=== PATIENT | female | born 1965 | race Caucasian/White ===

== ENCOUNTER 2021-10-20 09:45 | Outpatient (CLI) | payer OTHER, SELFPAY ==
[2021-10-20 19:41] LABS: Cholesterol 264 mg/dL (0-200); HDL Direct 35 mg/dL; Triglycerides 357 mg/dL (<150)
[2021-10-20 19:53] LABS: LDL Cholesterol Direct 142 mg/dL
[2021-10-20 20:00] LABS: Creatinine Urine 37.3 mg/dL
[2021-10-20 20:31] LABS: Hemoglobin A1C 5.6 % (<5.7)
[2021-10-20 20:37] LABS: MALB Creatinine Ratio < 16.1 mg/g (0-30); Microalbumin Urine Random < 6.0 mg/L (0-16.7)
== END 2021-10-20 09:46 | disposition home or self-care (01) ==
PROVIDERS: PCP Family Medicine; Visit Provider Family Medicine
DX: E11.9 Type 2 diabetes mellitus without complications (principal)
CPT/HCPCS: 36415; 80061; 82043; 83036

== ENCOUNTER 2022-04-27 14:42 | Outpatient (CLI) | payer OTHER, SELFPAY ==
[2022-04-27 19:30] LABS: Hemoglobin A1C 5.4 % (<5.7)
[2022-04-27 19:35] LABS: Alanine Aminotransferase 34 U/L (6-35); Albumin Level 4.8 g/dL (3.5-5.1); Alkaline Phosphatase 82 U/L (38-126); Anion Gap 7 mmol/L (8-16); Aspartate Amino Transferase 47 U/L (14-36); Bilirubin,Total 0.5 mg/dL (0.2-1.3); Blood Urea Nitrogen 14 mg/dL (7-17); Calcium 9.3 mg/dL (8.4-10.2); Carbon Dioxide 31 mmol/L (22-30); Chloride 101 mmol/L (98-107); Estimated Glomerular Filt Rate > 60; Glucose 85 mg/dL (65-110); Potassium 3.5 mmol/L (3.4-5.0); Sodium 139 mmol/L (137-145)
[2022-04-27 20:39] LABS: Creatinine Urine 30.1 mg/dL
[2022-04-27 20:46] LABS: MALB Creatinine Ratio < 19.9 mg/g (0-30); Microalbumin Urine Random < 6.0 mg/L (0-16.7)
== END 2022-04-27 14:43 | disposition home or self-care (01) ==
LOC: ANHBWCLAB 14:44
PROVIDERS: PCP Family Medicine; Visit Provider Family Medicine
DX: E11.9 Type 2 diabetes mellitus without complications (principal)
CPT/HCPCS: 36415; 80053; 82043; 83036

== ENCOUNTER 2022-05-02 11:40 | Outpatient (CLI) | payer OTHER, SELFPAY ==
[2022-05-02 19:32] LABS: Alanine Aminotransferase 31 U/L (6-35); Albumin Level 4.4 g/dL (3.5-5.1); Alkaline Phosphatase 84 U/L (38-126); Aspartate Amino Transferase 45 U/L (14-36); Bilirubin,Total 0.5 mg/dL (0.2-1.3)
[2022-05-02 19:48] LABS: Hepatitis B Surface Antigen Negative (Negative)
[2022-05-02 19:54] LABS: HAV RESULT Negative (Negative); Hepatitis B Core IgM Result Negative (Negative)
[2022-05-02 20:06] LABS: Hepatitis C Virus Antibody Negative (Negative)
== END 2022-05-02 11:41 | disposition home or self-care (01) ==
PROVIDERS: PCP Family Medicine; Visit Provider Family Medicine
DX: R74.01 Elevation of levels of liver transaminase levels (principal)
CPT/HCPCS: 36415; 80074; 80076

== ENCOUNTER → 2022-05-06 10:37 | Outpatient (CLI) | payer OTHER, SELFPAY ==
--- NOTE | ~2022-05-06 | US_ITS ---
US abdomen limited INDICATION: Elevated liver enzymes. PROCEDURE: Realtime right upper abdominal ultrasound. COMPARISON: No prior studies for comparison. FINDINGS: The pancreas is normal without focal mass or pancreatic ductal dilation. Liver echotexture is increased, consistent with fatty infiltration. There is normal directional flow in the portal ve in. There are gallstones. No gallbladder wall thickening or pericholecystic fluid. Common bile duct measu res 5 mm. No sonographic Nielsen's sign. IMPRESSION: 1: Cholelithiasis. 2: Hepatic steatosis. Reviewed, dictated and finalized at location A. E OPERATOR
== END ==
PROVIDERS: PCP Family Medicine; Visit Provider Family Medicine
DX: R74.01 Elevation of levels of liver transaminase levels (principal); K80.20 Calculus of gallbladder without cholecystitis without obstruction; K76.0 Fatty (change of) liver, not elsewhere classified
CPT/HCPCS: 76705

== ENCOUNTER 2022-11-09 08:11 | Outpatient (CLI) | payer OTHER, SELFPAY ==
[2022-11-09 19:28] LABS: Alanine Aminotransferase 35 U/L (6-35); Albumin Level 4.5 g/dL (3.5-5.1); Alkaline Phosphatase 69 U/L (38-126); Anion Gap 5 mmol/L (8-16); Aspartate Amino Transferase 67 U/L (14-36); Bilirubin,Total 0.6 mg/dL (0.2-1.3); Blood Urea Nitrogen 13 mg/dL (7-17); Calcium 9.3 mg/dL (8.4-10.2); Carbon Dioxide 33 mmol/L (22-30); Chloride 104 mmol/L (98-107); Cholesterol 264 mg/dL (0-200); Estimated Glomerular Filt Rate > 60; Glucose 86 mg/dL (65-110); HDL Direct 34 mg/dL; Potassium 4.3 mmol/L (3.4-5.0); Sodium 142 mmol/L (137-145); Triglycerides 242 mg/dL (<150)
[2022-11-09 19:39] LABS: LDL Cholesterol Direct 154 mg/dL
[2022-11-09 19:41] LABS: Hemoglobin A1C 5.2 % (<5.7)
[2022-11-09 19:46] LABS: Vitamin D 25 Hydroxy 59.7 ng/mL
[2022-11-09 20:14] LABS: Creatinine Urine 121.9 mg/dL
[2022-11-09 20:19] LABS: MALB Creatinine Ratio 5.2 mg/g (0-30); Microalbumin Urine Random 6.3 mg/L (0-16.7)
== END 2022-11-09 08:12 | disposition home or self-care (01) ==
LOC: ANHBWCLAB 08:12
PROVIDERS: PCP Nurse Practitioner Adult Health; Visit Provider Nurse Practitioner Adult Health
DX: E11.9 Type 2 diabetes mellitus without complications (principal); E55.9 Vitamin D deficiency, unspecified
CPT/HCPCS: 36415; 80053; 80061; 82043; 82306; 83036

== ENCOUNTER 2022-12-29 08:17 | Outpatient (CLI) | payer OTHER, SELFPAY ==
--- NOTE | ~2022-12-29 | XR_ITS ---
EXAMINATION: XR shoulder LT min 2V INDICATION: Left shoulder pain TECHNIQUE: Four views of the left shoulder are submitted. COMPARISON: None FINDINGS: Normal alignment. No fracture. There is moderate osteoarthritis of the acromioclavicular an d glenohumeral joints. Soft tissues are unremarkable. IMPRESSION: 1. Osteoarthritis without acute osseous abnormality. Reviewed, dictated and finalized at location D.
== END 2022-12-29 08:18 | disposition home or self-care (01) ==
PROVIDERS: PCP Nurse Practitioner Adult Health; Visit Provider Nurse Practitioner Adult Health
DX: M19.012 Primary osteoarthritis, left shoulder (principal)
CPT/HCPCS: 73030

== ENCOUNTER 2023-05-24 10:57 | Outpatient (CLI) | payer OTHER, SELFPAY ==
[2023-05-24 19:36] LABS: Alanine Aminotransferase 36 U/L (6-35); Albumin Level 4.2 g/dL (3.5-5.1); Alkaline Phosphatase 98 U/L (38-126); Anion Gap 8 mmol/L (8-16); Aspartate Amino Transferase 40 U/L (14-36); Bilirubin,Total 0.7 mg/dL (0.2-1.3); Blood Urea Nitrogen 11 mg/dL (7-17); Calcium 9.3 mg/dL (8.4-10.2); Carbon Dioxide 33 mmol/L (22-30); Chloride 101 mmol/L (98-107); Cholesterol 260 mg/dL (0-200); Estimated Glomerular Filt Rate > 60; Glucose 86 mg/dL (65-110); HDL Direct 28 mg/dL; Potassium 4.1 mmol/L (3.4-5.0); Sodium 142 mmol/L (137-145); Triglycerides 190 mg/dL (<150)
[2023-05-24 19:46] LABS: LDL Cholesterol Direct 163 mg/dL
[2023-05-24 20:00] LABS: Creatinine Urine 49.2 mg/dL
[2023-05-24 20:01] LABS: Vitamin D 25 Hydroxy 74.3 ng/mL
[2023-05-24 20:13] LABS: MALB Creatinine Ratio < 12.2 mg/g (0-30); Microalbumin Urine Random < 6.0 mg/L (0-16.7)
[2023-05-24 20:55] LABS: Hemoglobin A1C 5.3 % (<5.7)
== END 2023-05-24 10:58 | disposition home or self-care (01) ==
PROVIDERS: PCP Nurse Practitioner Adult Health; Visit Provider Nurse Practitioner Adult Health
DX: E11.9 Type 2 diabetes mellitus without complications (principal); E55.9 Vitamin D deficiency, unspecified
CPT/HCPCS: 36415; 80053; 80061; 82043; 82306; 83036

== ENCOUNTER 2023-11-02 08:28 | Outpatient (CLI) | payer OTHER, SELFPAY ==
[2023-11-02 19:50] LABS: Appearance Urine Clear (Clear); Bilirubin Urine Negative (Negative); Blood Urine Negative (Negative); Color Urine Yellow (Yellow); Glucose Urine UA Negative (Negative); Ketones Urine Negative (Negative); Leukocyte Esterase Ur Negative LEU/UL (Negative); Nitrate Urine Negative (Negative); Protein Urine Negative (Negative); Specific Grav Ur 1.019 (1.001-1.035); Urobilinogen Urine 0.2 mg/dL (<2.0); pH Urine 5.5 (5.0-9.0)
[2023-11-02 19:54] LABS: Alanine Aminotransferase 21 U/L (6-35); Albumin Level 4.5 g/dL (3.5-5.1); Alkaline Phosphatase 84 U/L (38-126); Anion Gap 7 mmol/L (4-12); Aspartate Amino Transferase 62 U/L (14-36); Bilirubin,Total 0.6 mg/dL (0.2-1.3); Blood Urea Nitrogen 16 mg/dL (7-17); Calcium 9.2 mg/dL (8.4-10.2); Carbon Dioxide 30 mmol/L (22-30); Chloride 106 mmol/L (98-107); Cholesterol 280 mg/dL (0-200); Estimated Glomerular Filt Rate > 60; Glucose 87 mg/dL (65-110); HDL Direct 34 mg/dL; Potassium 4.3 mmol/L (3.4-5.0); Sodium 143 mmol/L (137-145); Triglycerides 284 mg/dL (<150)
[2023-11-02 19:58] LABS: Add Urine Microscopic? NO
[2023-11-02 20:02] LABS: Hemoglobin A1C 5.1 % (<5.7)
[2023-11-02 20:05] LABS: LDL Cholesterol Direct 156 mg/dL
[2023-11-02 20:16] LABS: Creatinine Urine 131.6 mg/dL
[2023-11-02 20:16] LABS: Vitamin D 25 Hydroxy 62.1 ng/mL
[2023-11-02 20:18] LABS: MALB Creatinine Ratio 5.2 mg/g (0-30); Microalbumin Urine Random 6.8 mg/L (0-16.7)
== END 2023-11-02 08:29 | disposition home or self-care (01) ==
PROVIDERS: PCP Nurse Practitioner Adult Health; Visit Provider Nurse Practitioner Adult Health
DX: E11.9 Type 2 diabetes mellitus without complications (principal); R39.9 Unspecified symptoms and signs involving the genitourinary system; E55.9 Vitamin D deficiency, unspecified
CPT/HCPCS: 36415; 80053; 80061; 81003; 82043; 82306; 82565; 83036; 87086; 87088

== ENCOUNTER 2023-11-11 23:29 | Emergency (ER) | payer OTHER, SELFPAY ==
[2023-11-11 23:31] VITALS: BP 132/72; PULSE 83; RESP 17; TEMP 36.4; O2SAT 100
[2023-11-11 23:53] VITALS: BP 121/71; PULSE 91; RESP 13; TEMP 36.5; O2SAT 93
--- NOTE | 2023-11-11 23:57 | PC.NURSE ---
pt has a hx of shingles and chicken pox.
--- NOTE | 2023-11-12 00:28 | ED.SKABFB ---
HPI - Skin/Abscess/Foreign Bdy General Chief complaint: Skin/Abscess/Foreign Body Stated complaint: Rash Time Seen by Provider: 11/12/23 00:04 Source: patient Mode of arrival: ambulatory Limitations: no limitations History of Present Illness HPI narrative: Patient is a 57-year-old female who presents the ED with report of rash. Patient reports she noticed a rash on Monday with a few small red raised lesions on her arms. She has since developed lesions throughout her back, chest, abdomen, thighs, more throughout her arms. She states the rash is very itchy. Some of the lesions have popped . patient denies any lesions of her mouth, swelling of lips / throat/ tongue. Denies fevers. Denies any new soaps, lotions, detergents. She has been dealing with a rash of her hands over the last several months and is scheduled to see Dermatology for this at the end of November. she has been using a steroid cream and Silvana without much relief. Related Data Home Medications Medication Instructions Recorded Confirmed cholecalciferol (vitamin D3) 125 125 mcg PO DAILY 10/20/21 11/02/23 mcg (5,000 unit) capsule Allergies Allergy/AdvReac Type Severity Reaction Status Date / Time Opioids - Morphine Analogues Allergy Severe Itching Verified 11/11/23 23:54 Penicillins Allergy Hives Verified 11/11/23 23:54 Review of Systems Review of Systems: CONSTITUTIONAL: Denies fever, chills, or sweats. ENT: See HPI SKIN: See HPI All systems reviewed & are unremarkable except as noted in HPI and below PMFSH Family History Family History Mother Cancer Heart disease Depression Hypertension Sibling Alcohol abuse Diabetes mellitus Hypertension Depression Social History Social History Smoking packs per day: 1 Smoking cigarettes per day: 20.0 Smoking status: Current every day smoker Alcohol intake: never Substance use: never Substance use type: does not use Lack of Transportation: No Lack of Food: Never True Current Housing: I Have Housing Concerned About Future Housing: No Difficulty Paying Gas/Electric Bills: No Difficulty Paying for Meds: No Currently Unemployed: No Education: High School Diploma/GED Difficulty w/ Childcare or Family Care: No Living arrangements: with family Additional occupation/education comments: Housewife Gender identity (if verbalized by the patient): Female Sexual Orientation (if Verbalized by the Patient): Straight or Heterosexual Agree to blood products: Yes Exam Narrative: GENERAL: Well appearing, well-nourished, non-toxic, in no acute distress. HEAD: Normocephalic, atraumatic. ENT: No lesions of face. MMs moist. RESPIRATORY: Airway patent, respirations nonlabored. CARDIOVASCULAR: Regular rate and rhythm MUSCULOSKELETAL: Moves all extremities. No gross deformities. SKIN: Warm, dry, normal color. NEURO: A&O X3. Speech clear. Scattered raised erythematous lesions to chest, axillary regions, back, abdomen, thighs, arms. Some lesions appear to have pustular head forming. No actively draining lesions. No large blisters/vesicles. No necrosis/sloughing of skin. PSYCHIATRIC: Appropriate mood and affect. Normal interaction. Course Vital Signs Vital signs: Vital Signs Temperature 97.5 F L 11/11/23 23:31 Pulse Rate 83 11/11/23 23:31 Respiratory Rate 17 11/11/23 23:31 Blood Pressure 132/72 11/11/23 23:31 Pulse Oximetry 100 11/11/23 23:31 Oxygen Delivery Room Air 11/11/23 23:31 Temperature 97.7 F 11/11/23 23:53 Pulse Rate 91 11/11/23 23:53 Respiratory Rate 13 11/11/23 23:53 Blood Pressure 121/71 11/11/23 23:53 Pulse Oximetry 93 11/11/23 23:53 Oxygen Delivery Room Air 11/11/23 23:31 MDM - Skin/Abscess/Foreign Bdy MDM Narrative Medical decision making narrative: Unclear et
[2023-11-12] MEDS: diphenhydrAMINE HCl CAP 25 MG CAPSULE 50 MG PO (00:57)
[2023-11-12] MEDS: DOXYCYCLINE HYCLATE 100 MG TABLET PO (00:58)
[2023-11-12] MEDS: methylPREDNISolone SOD SUCC 125 MG VIAL IM (01:01)
== END 2023-11-12 01:04 | disposition home or self-care (01) ==
PROVIDERS: Emergency Provider Physician Assistant; PCP Nurse Practitioner Adult Health
DX: L08.0 Pyoderma (principal); F17.210 Nicotine dependence, cigarettes, uncomplicated
CPT/HCPCS: 96372; 99283; A9270; J2919

== ENCOUNTER 2023-12-06 14:38 | Outpatient (CLI) | payer OTHER, SELFPAY ==
--- NOTE | ~2023-12-06 | XR_ITS ---
3 VIEWS LUMBAR SPINE Ordering provider: Flor Bailey APRN History: . rt sided lower back pain radiating to rt hip x 2 days . Comparison: None. FINDINGS: VERTEBRAL BODIES: No visible fracture or subluxation. DISK SPACES: Narrowing of all disc spaces. Facet joint disease at the level of L4-L5 and L5-S1. SOFT TISSUES: Vascular calcifications. IMPRESSION: No acute osseous abnormality lumbar spine. Reviewed, dictated and finalized at location A.
--- NOTE | ~2023-12-06 | XR_ITS ---
XR hip RT min 2V 12/06/2023 14:49 Indication: Right hip pain for 2 days Procedure: 2 views right hip Comparison: No prior studies for comparison. Findings: There is mild osteoarthritis the right hip. No fracture or traumatic malalignment. No soft tissue abnormality. No foreign bodies. Impression: 1: Mild osteoarthritis of the right hip. Reviewed, dictated and finalized at location B. Impression: 1: Mild osteoarthritis of the right hip.
== END 2023-12-06 14:39 | disposition home or self-care (01) ==
LOC: ANHBWCIMG 14:39
PROVIDERS: PCP Nurse Practitioner Adult Health; Visit Provider Nurse Practitioner Adult Health
DX: M54.30 Sciatica, unspecified side (principal); M16.11 Unilateral primary osteoarthritis, right hip
CPT/HCPCS: 72100; 73502

== ENCOUNTER 2024-01-02 15:45 | Outpatient (CLI) | payer OTHER, SELFPAY ==
--- NOTE | ~2024-01-02 | XR_ITS ---
EXAMINATION: XR ankle LT 2V, XR foot LT min 3V DATE: 01/02/2024 16:01 INDICATION: Left foot injury TECHNIQUE: 1. Anteroposterior and lateral view of the left ankle were obtained. 2. Dorsoplantar, two oblique and lateral views of the left foot were obtained. COMPARISON: None. FINDINGS: Alignment of the left foot and ankle is normal. No fracture. Moderate-sized Achilles and plantar calc aneal spurs. Typical pattern of mild polyarticular osteoarthritis at multiple joints in the mid and f orefoot. No ankle joint effusion. The soft tissues are unremarkable. IMPRESSION: 1. Mild degenerative skeletal changes at the left foot. No acute osseous abnormality. Reviewed, dictated and finalized at location A. IMPRESSION: 1. Mild degenerative skeletal changes at the left foot. No acute osseous abnorm ality.
== END 2024-01-02 15:46 | disposition home or self-care (01) ==
PROVIDERS: PCP Nurse Practitioner Adult Health; Visit Provider Nurse Practitioner Adult Health
DX: S99.922A Unspecified injury of left foot, initial encounter (principal)
CPT/HCPCS: 73600; 73630

== ENCOUNTER 2024-04-30 10:53 | Outpatient (CLI) | payer OTHER, SELFPAY ==
[2024-04-30 21:07] LABS: Vitamin D 25 Hydroxy 66.4 ng/mL
[2024-04-30 22:03] LABS: Hemoglobin A1C 5.2 % (<5.7)
[2024-04-30 22:30] LABS: Alanine Aminotransferase 24 U/L (6-35); Albumin Level 4.9 g/dL (3.5-5.1); Alkaline Phosphatase 97 U/L (38-126); Anion Gap 10 mmol/L (4-12); Aspartate Amino Transferase 31 U/L (14-36); Bilirubin,Total 0.7 mg/dL (0.2-1.3); Blood Urea Nitrogen 14 mg/dL (7-17); Calcium 10.3 mg/dL (8.4-10.2); Carbon Dioxide 25 mmol/L (22-30); Chloride 113 mmol/L (98-107); Cholesterol 286 mg/dL (0-200); Estimated Glomerular Filt Rate > 60; Glucose 95 mg/dL (65-110); HDL Direct 41 mg/dL; Potassium 4.6 mmol/L (3.4-5.0); Sodium 148 mmol/L (137-145); Triglycerides 345 mg/dL (<150)
[2024-04-30 22:41] LABS: LDL Cholesterol Direct 152 mg/dL
[2024-04-30 23:10] LABS: Creatinine Urine 61.2 mg/dL
[2024-04-30 23:21] LABS: Microalbumin Urine Random < 6.0 mg/L (0-16.7)
[2024-04-30 23:22] LABS: MALB Creatinine Ratio < 9.8 mg/g (0-30)
== END 2024-04-30 10:54 | disposition home or self-care (01) ==
LOC: ANHBWCLAB 10:56
PROVIDERS: PCP Nurse Practitioner Adult Health; Visit Provider Nurse Practitioner Adult Health
DX: E11.9 Type 2 diabetes mellitus without complications (principal); E55.9 Vitamin D deficiency, unspecified; Z51.81 Encounter for therapeutic drug level monitoring
CPT/HCPCS: 36415; 80053; 80061; 82043; 82306; 82565; 82607; 83036

== ENCOUNTER 2024-07-31 12:11 | Emergency (ER) | payer OTHER, SELFPAY ==
--- NOTE | ~2024-07-31 | CT_ITS ---
CT abd pelvis lumbar wo con Ordering provider: Cortney Blancas PA-C History: 58 years Female with . include L spine, lbp, lower abd pain . Comparison: None. Technique: CT abdomen and pelvis without IV and without oral contrast. Automated exposure control and iterative reconstruction technique were employed. The dose-length product was 414.95 mGy-cm. Findings: VISUALIZED LOWER CHEST: Dependent atelectatic changes. UPPER ABDOMINAL ORGANS: Liver: Normal. Hepatomegaly. Gallbladder: Normal. Spleen: Normal. 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 Stomach/duodenum: Normal. Pancreas: Normal. Adrenals: Normal. Kidneys: Normal. PELVIC ORGANS: The bladder is normal. Fat-containing structure is seen above the urinary bladder which measures 6.5 x 5.3 cm. BOWEL AND MESENTERY: Colon: No evidence of diverticulitis. Fecal material is loaded in the right side of the colon Appendi x is not demonstrated. Small Bowel: Normal. No obstruction. Peritoneum/mesentery: No free air or free fluid. No mesenteric lymphadenopathy. RETROPERITONEUM: Mild atheromatous disease of the abdominal aorta. Focal area of dilatation the aort a is seen measuring 2.4 cm. No retroperitoneal lymphadenopathy. MUSCULOSKELETAL: Superficial soft tissues: Multiple defects in the area of the pelvis with fat content hernias. Rs,The superficial soft tissues are normal. Bones: Age appropriate degenerative changes of the spine. . Symphysitis. IMPRESSION: 1. Hepatomegaly. 2. Fat-containing structure is seen above the bladder with calcification which may be fat necrosis a nusrat. Follow-up advised. 3. Multiple defects in the anterior abdominal wall with fat content seen in the area of the pelvis. CT abd pelvis lumbar wo con Ordering provider: Cortney Blancas PA-C History: 58 years Female with . include L spine, lbp, lower abd pain . Comparison: None. Technique: CT lumbar spine without contrast. Automated exposure control and iterative reconstruction technique were employed. The dose-length product was 414.95 mGy-cm. FINDINGS: VERTEBRAE: Normal height and alignment. No subluxation or visible acute fracture. Degenerative change s of the spine. DISC SPACES: Narrowing of the disc L1-L2 and L2-L3. Left Facet joint disease at the level of L4-L5 an d L5-S1. Possible fracture of the transverse process persists of T12 on the right side or rudimentary rib. T12-L1: No stenosis. L1-L2: No stenosis. Mild diffuse disc bulge. L2-L3: No stenosis. Diffuse disc bulge with osteophytes with bilateral narrowing of the foramina mor e on the left side associated with nerve root compression. L3-L4: No stenosis. Diffuse disc bulge with bilateral narrowing of the foramina and nerve root compre ssion. L4-L5: No stenosis. Mild diffuse disc bulge. L5-S1: No stenosis. Diffuse disc bulge. PARASPINOUS SOFT TISSUES: Mild atheromatous disease of the abdominal aorta. IMPRESSION: Multilevel degenerative disc bulges with disc bulges and intervertebral foraminal narrowing. No acute osseous abnormality. Reviewed, dictated and finalized at location A. IMPRESSION: 1. Hepatomegaly. 2. Fat-containing structure is seen above the bladder with calcification which may be fat necrosis area. Follow-up advised. 3. Multiple defects in the anterior abdominal wall with fat content seen in th e area of the pelvis. CT abd pelvis lumbar wo con Ordering provider: Cortney Blancas PA-C History: 58 years Female with . include L spine, lbp, lower abd pain . Comparison: None. Technique: CT lumbar spine without contrast. Automated exposure control and it erative reconstruction technique were employed. The dose-length product was 414 .95 mGy-cm. FINDINGS: VERTEBRAE: Normal height and alignment. No subluxation or visible acute fractur e. Degenerative changes of the spine. DISC SPACES: Narrowing of the disc L1-L2 and L2-L3. Left Facet joint disease at the level of L4-L5 and L5-S1. Possible fracture of the transverse process persists of T12 on the right side o r rudimentary rib. T12-L1: No stenosis. L1-L2: No stenosis. Mild diffuse disc bulge. L2-L3: No stenosis. Diffuse disc bulge with osteophytes with bilateral narrowi ng of the foramina more on the left side associated with nerve root compression . L3-L4: No stenosis. Diffuse disc bulge with bilateral narrowing of the foramina and nerve root compression. L4-L5: No stenosis. Mild diffuse disc bulge. L5-S1: No stenosis. Diffuse disc bulge. PARASPINOUS SOFT TISSUES: Mild atheromatous disease of the abdominal aorta. IMPRESSION: Multilevel degenerative disc bulges with disc bulges and intervertebral foramin al narrowing. No acute osseous abnormality.
[2024-07-31 12:12] VITALS: BP 127/72; PULSE 91; RESP 16; TEMP 36.4; O2SAT 99
--- OUTSIDE RECORDS SUMMARY | 2024-07-31 13:41 | XMS_ITS | Clinical Summary ---
Author Organization [facility] [address] [place] Address [address] [place] [id number] Care Team Providers Care Tax Services Professional Name Role Phone Juancarlos Mendez MD Primary Care Provider [phone] Allergies Active Allergy Reactions Criticality Noted Date Comments Morphine Itching,Other (See comments) Reaction: Itching, , Reaction: Unknown, , Medications cholecalciferol (VITAMIN D-3) 5,000 unit capsule Take 5,000 Units by mouth daily Active FreeStyle Palak 14 Day Sensor kit TEST SUGAR SIX TIMES DAILY 0 Active metoprolol tartrate (LOPRESSOR) 50 mg immediate release tablet Take 1 tablet by mouth twice daily 180 tablet 3 1 Active omeprazole (PriLOSEC) 40 mg capsule Take 1 capsule by mouth once daily 90 capsule 3 1 Active Ozempic 0.25 mg or 0.5 mg(2 mg/1.5 mL) pen injector injection INJECT 0.5MG UNDER THE SKIN EVERY 7 DAYS 6 mL 3 1 Active chlorhexidine (HIBICLENS) 4 % external liquidIndications :Skin Disinfection Apply topically daily as needed for wound care Cleanse skin with solution twice a week 946 mL 1 1 Active meloxicam (MOBIC) 15 mg tablet Take 1 tablet (15 mg total) by mouth daily as needed for pain 90 tablet 1 2 Active losartan (COZAAR) 50 mg tablet Take 1 tablet (50 mg total) by mouth daily 90 tablet 3 2 Active Active Problems Problem Noted Date Diagnosed Date Perineal pain 03/30/2021 Assessment & Plan (03/30/2021 11:30 AM GROUP CHIEF OPERATOR): It appears that the either small abscess, infected hair follicle or cyst has resolved with just the oral antibiotics. There is no further sign of anything to lanced or drain. The patient will just keep an eye on this. I am going to send her in Hibiclens that she can use on a weekly basis to see if this may help these further lesions from returning. VIOLET (obstructive sleep apnea) 08/20/2020 Type 2 diabetes mellitus with hyperlipidemia 04/2019 Chronic GERD 04/10/2017 Mixed hyperlipidemia 04/10/2017 Essential hypertension 04/10/2017 Tobacco abuse 04/10/2017 Vitamin D deficiency 04/10/2017 Hypertension 02/17/2011 Hyperlipidemia 02/17/2011 Arthritis 02/17/2011 Sleep apnea 01/10/2011 Overview (08/19/2016): Sleep apnea Resolved Problems Problem Noted Date Diagnosed Date Resolved Date Leg mass, left 02/25/2020 06/09/2020 Assessment & Plan (04/07/2020 9:05 AM GROUP CHIEF OPERATOR): Pathology reviewed with the patient as lipoma. No further restrictions from surgical standpoint. Patient can call back with any further questions or concerns. Assessment & Plan (02/25/2020 11:48 AM CDT): Given that this subcutaneous lesion in the upper left thigh is increasing in size we will set her up for excision. This likely will end up representing a lipoma. Postoperative restrictions will be given. Pre-admission testing will be sent in. Dermoid cyst of leg, right 02/25/2020 0 06/09/2020 Assessment & Plan (02/25/2020 11:51 AM CDT): The right inner thigh lesion has near completely resolved as there is no residual palpable lesion. This likely represented a epidermoid cyst. If increases in size again we could set her up for excision. The left inner groin lesion appears to just be an ingrown hair follicle. Perhaps when she 1st noticed it it was infected causing it to be somewhat red but this also has since resolved. No treatment needed to these inner groin lesions unless they begin to increase in size. Mikala-rectal abscess 06/25/2019 06/09/19 21 Assessment & Plan (07/02/2019 10:39 AM GROUP CHIEF OPERATOR): Continue packing changes. Will likely need to be done for another 3-4 days. She will call us back for any further questions or concerns. Assessment & Plan (06/25/2019 10:33 AM GROUP CHIEF OPERATOR): I will plan to open the abscess up in the office today. We have discussed the need then for daily packing changes so that it may have a chance to heal from the bottom up. I have also discussed my concerns about a possible fistula given its two weak persistence. Once the area has been packed and allowed to heal will see if it quickly returns. If this is the case will set her up for an exam under anesthesia to see if there is in fact a fistula. Epigastric pain 10/18/2017 07/19/2018 Overview (10/18/2017): Added automatically from request for surgery [id number] Pure hypercholesterolemia 09/28/2013 Overview (08/19/2016): PURE HYPERCHOLESTEROLEM Benign hypertension 09/28/2013 04/10/20 17 Overview (08/19/2016): BENIGN HYPERTENSION Carpal tunnel syndrome 04/27/201104/10 Overview (08/17/2016): Bilateral carpal tunnel syndrome Headache 04/27/2011 04/10/2017 Overview (08/17/2016): Headache Cephalalgia 02/17/2011 10/13/2017 Immunizations Immunization Administration Dates Next Due Influenza, Unspecified 06/10/2021(Deferr ed: Patient Refused),12/14/2020(Deferred: Patient Refused),12/10/2020(Deferred: Patient Refused),06/09/2020(Deferred: Patient Refused),02/13/2020(Deferred: Patient Refused),11/25/2019(Deferred: Patient Refused),07/25/2019(Deferred: Patient Refused),06/19/2019(Deferred: Patient Refused),03/06/2019(Deferred: Patient ill today),01/24/2019(Deferred: Patient Refused),05/30/2018(Deferred: Patient Refused),02/12/2018(Deferred: Patient Refused),04/10/2017(Deferred: Patient Refused) Surgical History Surgery Date Site/Laterality Comments BLADDER SURGERY 05/15/2005 - 05/14/2006 Bladder Sling OTHER SURGICAL HISTORY Sleep Apnea: Cpap Machine TUBAL LIGATION Bilateral tubal ligation TOTAL ABDOMINAL HYSTERECTOMY W/ BILATERAL SALPINGOOPHORECTOMY 05/15/2005 - 05/14/2006 Hysterectomy, total abdominal, BSO TONSILLECTOMY Tonsillectomy MASS EXCISION 03/30/2020 Left Medical History Medical History Date Comments Sleep apnea Sleep Apnea Hx Other Medical chronic headach es Hx Other Medical Carpal tunnel s yndrome Hx Other Medical osteopenia Spinal stenosis Spinal Stenosis Osteoarthritis Osteoarthritis Hypertension Hypertension Hyperlipidemia Hyperlipidemia Hx Other Medical julio cesar ct release Diabetes mellitus (HCC) GERD (gastroesophageal reflux disease) Type 2 diabetes mellitus (HCC) Family History Medical History Relation Name Comments Melanoma Brother 5 Cancer -melanom a; Hypertension Brother 6 Hypertension; Diabetes Brother 7 Diabetes mellit us; Heart disease Brother 8 Heart disease; Melanoma Brother 9 Cancer -melanom a; Cancer Father Cancer; Melanoma Father Cancer -melanom a; Heart disease Mother Heart disease; Hypertension Mother Hypertension; Diabetes Other 1 Family history of Diabetes mellitus; Heart disease Other 2 Family history of Heart disease; Hypertension Other 3 Family history of Hypertension; Melanoma Other 4 Family history of Melanoma; Cancer Other 5 Family history of Cancer; Relation Name Status Comments Brother 1 Alive Brother 2 Alive Brother 3 Alive Brother 4 Alive Brother 5 Brother 6 Brother 7 Brother 8 Brother 9 Father Mother Other 1 Other 2 Other 3 Other 4 Other 5 Social History Tobacco Use Types Packs/Day Years Used Date Smoking Tobacco: Heavy Smoker Cigarettes Smokeless Tobacco: Never Tobacco Cessation:Ready to Q uit: Yes; Counseling Given: Yes Comments:Smoking History Packs/day: 1 Packs Alcohol Use Standard Drinks/Week Comments Yes 0 (1 standard drink = 0.6 oz pur e alcohol) PHQ-2 Answer Date Recorded PHQ-2 Total Score (If total score is 3 or more points, staff should administer the PHQ-9) 0 06/10/2021 Comments Unknown Sex and Gender Information Value Date Recorded Sex Assigned at Not on file Legal Sex Female 8:05 PM GROUP CHIEF OPERATOR Gender Identity Not on file Sexual Orientation Not on file Obstetrics History Last Filed Vital Signs Vital Sign Reading Time Taken Comments Blood Pressure 124/68 12/24/2021 6:20 PM CDT Pulse 86 12/24/2021 6:20 PM CDT Temperature 36.2 C (97.1 F) 12/24/2021 6:20 PM CDT Respiratory Rate 17 12/24/2021 6:20 PM CDT Oxygen Saturation 96% 12/24/2021 6:20 PM CDT Inhaled Oxygen Concentration - - Weight 84.6 kg (186 lb 6.4 oz) 12/24/2021 6:20 P M CDT Height 170.2 cm (5' 7 ) 12/24/2021 6:20 PM CDT Body Mass Index 29.19 12/24/2021 6:20 PM CDT Plan of Treatment Health Maintenance Due Date Last Done Comments DTaP/Tdap/Td Vaccine (1 - Tdap) 11/16/1975 Hepatitis B Screening 1982 Pneumococcal vaccine <65 (1 of 2 - PCV) 11/16/1983 Zoster Vaccine (1 of 2) 2014 Osteoporosis Screening-Bone Density Scan 11/24/2017 11/25/2015 Dilated Eye Exam 06/27/2020 06/27/2019, , 08/09/2018, Additional history exists Foot Exam 11/24/2020 11/25/2019, 01/13, 05/30/2018, Additional history exists Hemoglobin A1C 12/01/2021 06/03/2021, 11/13, 06/05/2020, Additional history exists Albumin Creatinine Ratio, Urine 06/03/2022 , 06/05/2020 Lipid Panel 06/03/2022 06/03/2021, 11/13, 06/05/2020, Additional history exists eGFR 06/03/2022 06/03/2021, 11/13, 06/05/2020, Additional history exists Depression Screening 06/10/2022 06/10/2021, 12/10/2020, 06/09/2020, Additional history exists Regular Well Visit/Exam 18-64 06/10/2022, 06/09/2020, 01/24/2019, Additional history exists Breast Cancer Screening-Mammogram 02/08/2023 02/08/2022, 10/25/2016, 10/09/2015, Additional history exists Influenza Vaccine (#1) 2024 Colon Cancer Screening-Colonoscopy 03/07/2026 03/07/2016, 03/07/2016, 01/24/2011 Colon Cancer Screening-CT Colonography Discontinued 03/07/2016, 03/07/2016, 01/24/2011 Colon Cancer Screening-DNA Stool Discontinued 03/07/2016, 03/07/2016, 01/24/2011 Colon Cancer Screening-FIT Discontinued 03/07, 03/07/2016, 01/24/2011 Colon Cancer Screening-Sigmoidoscopy Discontinued 03/07/2016, 03/07/2016, 01/24/2011 Hepatitis C Screening Completed 03/27/2017 Procedures Procedure Name Priority Date/Time Associated Diagnosis Comments DIAGNOSTIC MAMMOGRAM BILATERAL W DEAN Schedule Routine, Read Routine (OP Routine) 02/08/2022 1:01 PM CDT Mastodynia Encounter for other screening for malignant neoplasm of breast ALBUMIN CREATININE RATIO, URINE Routine 06/03/2021 2:32 PM GROUP CHIEF OPERATOR Annual physical exam Essential hypertension EGFR Routine 06/03/2021 11:45 AM GROUP CHIEF OPERATOR Annual physical exam Essential hypertension HEMOGLOBIN A1C Routine 06/03/2021 11:45 AM GROUP CHIEF OPERATOR Annual physical exam Type 2 diabetes mellitus with hyperlipidemia (HCC) LIPID PANEL Routine 06/03/2021 11:45 AM GROUP CHIEF OPERATOR Annual physical exam Mixed hyperlipidemia HM DIABETES EYE EXAM Routine 06/27/2019 HEPATITIS C AB REFLEX RNA QUANT PCR Routine 03/27/2017 2:34 PM GROUP CHIEF OPERATOR COLONOSCOPY 03/07/2016 12:00 AM CDT DEXA AXIAL SKELETON BONE DENSITY 1 OR MORE SITES Schedule Routine, Read Routine (OP Routine) 11/25/2015 from Last 3 Months or Most Recently Relevant to Health Maintenance Results * Diagnostic Mammogram Bilateral W Dean (02/08/2022 1:01 PM CDT) Anatomical Region Laterality Modality Breast Bilateral Mammography 02/08/2022 1:19 PM CDT Impressions 02/08/2022 1:19 PM CDT No evidence of malignancy in either breast. OVERALL FINAL ASSESSMENT: BI-RADS Category 2: Benign. RECOMMENDATION: Annual screening mammography is recommended. Electronically signed by: Alexandra Mcdonald M.D. Narrative 02/08/2022 1:19 PM CDT EXAMINATION: BILATERAL DIGITAL DIAGNOSTIC MAMMOGRAM INCLUDING CAD AND BILATERAL DIGITAL BREAST TOMOSYNTHESIS HISTORY: Patient has right nipple pain for 48 hours a month ago. Today she does not have any pain. Bilateral oil cysts. Benign left breast biopsies. COMPARISON: 10/25/2016 to 09/16/2013 TECHNIQUE: Full field digital mammographic views of BOTH breasts were performed, including computer aided detection (CAD) and BILATERAL digital breast tomosynthesis (DBT). BREAST PARENCHYMAL COMPOSITION: The breasts are heterogenously dense, which may obscure small masses. MAMMOGRAM FINDINGS: There is no new suspicious abnormality within EITHER breast; the appearance of BOTH breasts is stable compared to prior exams. Bilateral stable calcified oil cysts are seen. Findings were discussed with the patient after completion of the exam and suggested if she has pain, schedule for ultrasound/follow-up with her physician. us Juancarlos Mendez MD IMG MAMMO PROCEDURES Bridget l Result * Albumin Creatinine Ratio, Urine (06/03/2021 2:32 PM GROUP CHIEF OPERATOR) Albumin Ur <12.0 mg/L [facility] ([facility]) Comment: Interpretive Data No reference range established. Current interpretive data was last revised 2018. Testing performed by: [facility], [address] [place] [address], [place]., [address] Creatinine Ur 119.6 mg/dL [facility] ([facility]) Comment: Interpretive Data No reference range established. Current interpretive data was last revised 2018. Testing performed by: [facility], [address] [place] [address]., [id number] Albumin Creatinine Ratio, Ur <10 1 - 29 mg/g [facility] ([place]) Comment:Testing performed by : [facility], [address] [place] [address]., [id number] Urine 06/03/2021 2:32 PM GROUP CHIEF OPERATOR 06/03/2021 8:46 PM GROUP CHIEF OPERATOR Narrative [facility] ([place]) - 06/03/2021 9:29 PM GROUP CHIEF OPERATOR Fasting- pt will be getting done 1-2 weeks before appt us Aleksey Meléndez MD LAB URINE ORDERABLES Final Res ult [facility] ([place]) 1 [facility] Department [place] [address] * eGFR (06/03/2021 11:45 AM GROUP CHIEF OPERATOR) eGFR 109 mL/min/1. 73 m2 [facility] ([place]) Comment: Interpretive Data Reference Interval Normal >/= 90 mL/min/1.73m2 Mildly decreased* 60 - 89 mL/min/1.73m2 Mildly to moderately decreased 45 - 59 mL/min/1.73m2 Moderately to severely decreased 30 - 44 mL/min/1.73m2 Severely decreased 15 - 29 mL/min/1.73m2 Kidney Failure < 15 mL/min/1.73m2 *Relative to young adult level Estimated glomerular filtration rate is determined by the 2020 CKD-EPI equation recommended by the National Kidney Foundation (A Unifying Approach to GFR Estimation: Recommendations of the NKF-ASK Task Force on Reassessing the Inclusion of Race in Diagnosing Kidney Disease, JASN 2020). The CKD-EPI equation should not be used for patients with unstable renal function and has not been validated in children and those over 70. Current interpretive data was last reviewed 2021. Blood 06/03/2021 11:4 5 AM GROUP CHIEF OPERATOR 06/03/2021 1:00 PM GROUP CHIEF OPERATOR us Aleksey Meléndez MD LAB BLOOD ORDERABLES Final Res ult Performing Organization Address City/[facility]/ZIP Co de Phone Number [facility] ([facility]) 1 [facility] [place] [address] * Hemoglobin A1c (06/03/2021 11:45 AM GROUP CHIEF OPERATOR) Hgb A1C 5.5 4.0 - 5.6 % [facility] ([facility]) Estimated Average Glucose 111 mg/dL [facility] ([facility]) Comment: The ADA recommends reporting an estimated Average Glucose (eAG) with all Hemoglobin A1c results using the equation derived from a study of 507 normal and diabetic adults. Minority populations were underrepresented and children were not included. (Diabetes Care 31:7894-1788, 2008). The eAG is not equivalent to a fasting glucose. Blood 06/03/2021 11:4 5 AM GROUP CHIEF OPERATOR 06/03/2021 1:00 PM GROUP CHIEF OPERATOR Narrative [facility] ([place]) - 06/03/2021 1:58 PM GROUP CHIEF OPERATOR Fasting- pt will be getting done 1-2 weeks before appt Aleksey Meléndez MD LAB BLOOD ORDERABLES Final Res ult Performing Organization Address [facility] Co de Phone Number [facility] ([facility]) 1 [facility] [place] [address] * (ABNORMAL) Lipid panel (06/03/2021 11:45 AM GROUP CHIEF OPERATOR) Cholesterol 218(H) 30 - 199 mg/dL [facility] ([facility]) Comment: Interpretive Data Ages < or = 19 years Acceptable: <170 mg/dL Borderline high: 170-199 mg/dL High: >or= 200 mg/dL Ages > or = 20 years Desirable: <200 mg/dL Borderline high: 200-239 mg/dL High: >or= 240 mg/dL Literature References: 1. Expert Panel on Integrated Guidelines for Cardiovascular Health and Risk Reduction in Children and Adolescents. Pediatrics 2011;128:S213 2. NCEP Expert Panel. Circulation 2004;110:227 Current Interpretive Data was last revised on 2018. Triglycerides 267(H) <=149 mg/dL [facility] ([facility]) Comment: Interpretive Data Ages < or = 9 years Acceptable: <75 mg/dL Borderline high: 75-99 mg/dL High: >or= 100 mg/dL Ages 10 to 20 years Acceptable: <90 mg/dL Borderline high: 90-129 mg/dL High: >or= 130 mg/dL Ages > or = 20 years Desirable: <150 mg/dL Borderline high: 150-199 mg/dL High: 200-499 mg/dL Very high: >or= 499 mg/dL Literature References: 1. Expert Panel on Integrated Guidelines for Cardiovascular Health and Risk Reduction in Children and Adolescents. Pediatrics 2011;128:S213 2. NCEP Expert Panel. Circulation 2004;110:227 Current Interpretive Data was last revised on 2018. HDL 31(L) >=40 mg/dL [facility] ([facility]) Comment: Interpretive Data Ages < or = 19 years Acceptable: >45 mg/dL Borderline low: 40-45 mg/dL Low: <40 mg/dL Ages > or = 20 years Desirable: >or= 60 mg/dL Low: <40 mg/dL Literature References: 1. Expert Panel on Integrated Guidelines for Cardiovascular Health and Risk Reduction in Children and Adolescents. Pediatrics 2011;128:S213 2. NCEP Expert Panel. Circulation 2004;110:227 Current Interpretive Data was last revised on 2018. LDL, calculated 134(H) <=129 mg/dL [facility] ([facility]) Comment: Interpretive Data Ages < or = 19 years Acceptable: <110 mg/dL Borderline high: 110-129 mg/dL High: >or= 130 mg/dL Ages > or = 20 years Optimal: <100 mg/dL Near optimal: 100-129 mg/dL Borderline high: 130-159 mg/dL High: >160 mg/dL Literature References: 1. Expert Panel on Integrated Guidelines for Cardiovascular Health and Risk Reduction in Children and Adolescents. Pediatrics 2011;128:S213 2. NCEP Expert Panel. Circulation 2004;110:227 Current Interpretive Data was last revised on 2018. Non-HDL Cholesterol 187 mg/dL [facility] ([facility]) Comment: Interpretive Data Ages < or = 19 years Acceptable: <120 mg/dL Borderline high: 120-144 mg/dL High: >145 mg/dL Ages > or = 20 years When triglycerides are >200 mg/dL, Non-HDL cholesterol is a secondary target of therapy with treatment goals that are 30 mg/dL greater than the LDL cholesterol target. Literature References: 1. Expert Panel on Integrated Guidelines for Cardiovascular Health and Risk Reduction in Children and Adolescents. Pediatrics 2011;128:S213 2. NCEP Expert Panel. Circulation 2004;110:227 Current Interpretive Data was last revised on 2018. Chol/HDL ratio 7 [facility] ([facility]) Blood 06/03/2021 11:4 5 AM GROUP CHIEF OPERATOR 06/03/2021 1:00 PM GROUP CHIEF OPERATOR Narrative [facility] ([facility]) - 06/03/2021 1:25 PM GROUP CHIEF OPERATOR Fasting- pt will be getting done 1-2 weeks before appt Aleksey Meléndez MD LAB BLOOD ORDERABLES Final Res ult [facility] ([facility]) 1 [facility] Department [place] [address] * DIABETES EYE EXAM (06/27/2019) Kevin Provider HEALTH MAINTENANCE Edited Result - Final * Hepatitis C Antibody Reflex Hepatitis C RNA Quantitative PCR (03/27/2017 2:34 PM GROUP CHIEF OPERATOR) Hep C Ab Negative Negative [facility] Blood specimen (specimen) 03/27/2017 2:34 PM GROUP CHIEF OPERATOR 03/27/2017 2:34 PM GROUP CHIEF OPERATOR Aleksey Meléndez MD LAB MICROBIOLOGY - GENERAL ORD ERABLES Final Result [facility] [address] Department of Laboratories [place], [place] [id number] * COLONOSCOPY (03/07/2016 12:00 AM CDT) Anatomical Region Laterality Modality Other Narrative 03/07/2016 12:00 AM CDT Ordered by an unspecified provider. Procedure Note ProviderKevin MD - 03/07/2016 12:00 AM CDT PROCEDURE REPORT Patient: BELEM WHITT Service Date: 03/07/2016 Account: [id number] Room No: : 1965 Patient Type: [facility] Attend.: Eriberto Solorio M.D. Admit Date: 03/07/2016 Dict.: Eriberto Solorio M.D. Disch. Date: 03/07/2016 SURGEON Eriberto Solorio MD PROCEDURE Colonoscopy. INDICATIONS Previous history of colon polyp about 5 years ago. The patient is dueto have another one. FINDINGS 1. Mild diverticulosis. 2. Medium-sized hemorrhoids without any bleeding. 3. I did not find any polyps. PROCEDURE The patient signed informed consent. Risks and benefits of theprocedure were explained to the patient in detail, including but not limited to bleeding, perforation, reaction to the medications, cardiorespiratory failure, aspiration. The patient was agreeable to proceed. The patient brought to Endoscopy Suite, and we did a timeout. We used MACanesthesia. The patient was placed in the left lateral decubitus position. After shewas sedated, I performed a rectal exam that showed skin tags. Then, Iintroduced the colonoscope through the anus. It was advanced under directvisualization to the cecum. I identified the appendiceal orifice and the ileocecalvalve. The quality of the prep was good. Then I started withdrawing the scopevery slowly, for which I took more than 6 minutes of careful evaluation. The colon mucosa and vascular pattern looked normal. I did not find anypolyps. There was only a few diverticula in the left side of the colon. This is consistent with mild diverticulosis without any active inflammation. Finally, retroflexed view in the rectum showed medium size internal hemorrhoids without any bleeding. Then I removed the scope. Thepatient tolerated the procedure without any immediate complications. PLAN 1. The patient is going to recovery area and after waking up, she cango home. 2. The patient probably needs to have her next colonoscopy in about 10 years, the last time she only had a few polyps in the rectum and all ofthem were hyperplastic. Thank you very much for allowing us to participate in the care of your patient. Electronically Authenticated and Edited by: Eriberto Amaya MD On 03/10/2016 03:51 PM CDT Eriberto Solorio M.D. ER/ams TD: 03/07/2016 10:10 CC: Aleksey Meléndez M.D. us Historical Provider ENDOSCOPY PROCEDURES Bridget l Result * Dexa Axial Skeleton Bone Density 1 or 2 Site (11/25/2015) Anatomical Region Laterality Modality Body N/A Radiographic Tania ging Narrative 11/25/2015 Results are already scanned in media us Historical Provider IMG DXA PROCEDURES Final Result from Last 3 Months or Most Recently Relevant to Health Maintenance Insurance CIGNA CIGNA CIGNA Care Teams Tax Services Professional Relationship Specialty Start Date End Date Juancarlos Mendez MD PCP - General 12/28/21
--- OUTSIDE RECORDS SUMMARY | 2024-07-31 13:41 | XMS_ITS | Encounter Summary ---
Author Organization [facility] Address [address] [place] [address] Phone Care Team Providers Care Blueprint Blocker Name Role Phone Aleksey Meléndez MD Primary Care Provider [phone] Juancarlos Mendez MD Primary Care Provider [phone] Encounter Details Date Type Department Care Team (Late st Contact Info) Description 10/13/2017 Orders Only [facility] ProviderKevin MD [address] [place], [place] [id number] Social History Tobacco Use Types Packs/Day Years Used Date Smoking Tobacco: Heavy Smoker Smokeless Tobacco: Never Comments:Smoking History Pac ks/day: 1 Packs Alcohol Use Standard Drinks/Week Comments Yes 0 (1 standard drink = 0.6 oz pur e alcohol) Comments Unknown Sex and Gender Information Value Date Recorded Sex Assigned at Not on file Legal Sex Female 8:05 PM DATA MANAGEMENT MANAGER Gender Identity Not on file Sexual Orientation Not on file documented as of this encounter Plan of Treatment Not on file documented as of this encounter Procedures Procedure Name Priority Date/Time Associated Diagnosis Comments DISCHARGE LABORATORY CUMULATIVE REPORT 10/13/2017 12:00 AM CDT documented in this encounter Results * DISCHARGE LABORATORY CUMULATIVE REPORT (10/13/2017 12:00 AM CDT) Narrative 10/13/2017 12:00 AM CDT Ordered by an unspecified provider. Historical Provider LAB BLOOD ORDERABLES Bridget l Result documented in this encounter Visit Diagnoses Not on filedocumented in this encounter Additional Health Concerns Infection Onset Date Last Indicated Resolved Time COVID: Suspected 12/01/2021 12/01/2021 12/01/2021 2:18 PM CDT documented as of this encounter Care Teams Blueprint Blocker Relationship Specialty Start Date End Date Aleksey Meléndez MD PCP - General 08/12/16 12/27/21 Juancarlos Mendez MD PCP - General 12/28/21 documented as of this encounter
--- OUTSIDE RECORDS SUMMARY | 2024-07-31 13:41 | XMS_ITS | Encounter Summary ---
Author Organization [facility] Address [address] [place] [address] Phone Care Team Providers Care Product Builder Name Role Phone Aleksey Meléndez MD Primary Care Provider [phone] Juancarlos Mendez MD Primary Care Provider [phone] Encounter Details Date Type Department Care Team (Late st Contact Info) Description 09/29/2017 Orders Only [facility] ProviderKevin MD [address] [place], [place] [id number] Social History Tobacco Use Types Packs/Day Years Used Date Smoking Tobacco: Heavy Smoker Smokeless Tobacco: Never Comments:Smoking History Pac ks/day: 1 Packs Alcohol Use Standard Drinks/Week Comments Yes 0 (1 standard drink = 0.6 oz pur e alcohol) Comments Unknown Sex and Gender Information Value Date Recorded Sex Assigned at Not on file 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 Historical Provider LAB BLOOD ORDERABLES Bridget l Result documented in this encounter Visit Diagnoses Not on filedocumented in this encounter Additional Health Concerns Infection Onset Date Last Indicated Resolved Time COVID: Suspected 12/01/2021 12/01/2021 12/01/2021 2:18 PM CDT documented as of this encounter Care Teams Product Builder Relationship Specialty Start Date End Date Aleksey Meléndez MD PCP - General 08/12/16 12/27/21 Juancarlos Mendez MD PCP - General 12/28/21 documented as of this encounter
--- OUTSIDE RECORDS SUMMARY | 2024-07-31 13:41 | XMS_ITS | Referral Summary ---
Author Organization [facility] [address] Address [address] [place] [id number] Care Team Providers Care Back Facer Name Role Phone Juancarlos Mendez MD Primary Care Provider [phone] Allergies Active Allergy Reactions Criticality Noted Date [...] 03/30/2021 Assessment & Plan (03/30/2021 11:30 AM LOG CARRIER OPERATOR): It appears that the either small [...] 06/09/2020 Assessment & Plan (04/07/2020 9:05 AM LOG CARRIER OPERATOR): Pathology reviewed with the patient as [...] 21 Assessment & Plan (07/02/2019 10:39 AM LOG CARRIER OPERATOR): Continue packing changes. Will likely need to be done for another 3-4 days. She will call us back for any further questions or concerns. Assessment & Plan (06/25/2019 10:33 AM LOG CARRIER OPERATOR): I will plan to open the [...] (10/18/2017): Added automatically from request for surgery [id number] Pure hypercholesterolemia 09/28/2013 Overview (08/19/2016): PURE HYPERCHOLESTEROLEM [...] Refused),05/30/2018(Deferred: Patient Refused),02/12/2018(Deferred: Patient Refused),04/10/2017(Deferred: Patient Refused) Social History Tobacco Use Types Packs/Day Years [...] on file Legal Sex Female 8:05 PM LOG CARRIER OPERATOR Gender Identity Not on file Sexual Orientation Not on file Last Filed Vital Signs Vital Sign Reading [...] 12/24/2021 6:20 PM CDT Plan of Treatment Not on file Procedures Procedure Name Priority Date/Time Associated Diagnosis Comments DIAGNOSTIC MAMMOGRAM BILATERAL W DEAN Schedule Routine, Read Routine (OP Routine) 02/08/2022 1:01 PM CDT Mastodynia Encounter for other screening for malignant neoplasm of breast ALBUMIN CREATININE RATIO, URINE Routine 06/03/2021 2:32 PM LOG CARRIER OPERATOR Annual physical exam Essential hypertension EGFR Routine 06/03/2021 11:45 AM LOG CARRIER OPERATOR Annual physical exam Essential hypertension HEMOGLOBIN A1C Routine 06/03/2021 11:45 AM LOG CARRIER OPERATOR Annual physical exam Type 2 diabetes mellitus with hyperlipidemia (HCC) LIPID PANEL Routine 06/03/2021 11:45 AM LOG CARRIER OPERATOR Annual physical exam Mixed hyperlipidemia HM DIABETES EYE EXAM Routine 06/27/2019 HEPATITIS C AB REFLEX RNA QUANT PCR Routine 03/27/2017 2:34 PM LOG CARRIER OPERATOR COLONOSCOPY 03/07/2016 12:00 AM CDT DEXA [...] Albumin Creatinine Ratio, Urine (06/03/2021 2:32 PM LOG CARRIER OPERATOR) Albumin Ur <12.0 mg/L [facility] ([facility]) Comment: Interpretive Data No reference range established. Current interpretive data was last revised 2018. Testing performed by: [address] [address] Creatinine Ur 119.6 mg/dL [facility] ([facility]) Comment: Interpretive Data No reference range established. Current interpretive data was last revised 2018. Testing performed by: [address] [address] Albumin Creatinine Ratio, Ur <10 1 - 29 mg/g [facility] ([facility]) Comment:Testing performed by : [facility], [address] [place] [address]., [address] Urine 06/03/2021 2:32 PM LOG CARRIER OPERATOR 06/03/2021 8:46 PM LOG CARRIER OPERATOR Narrative [facility] ([facility]) - 06/03/2021 9:29 PM LOG CARRIER OPERATOR Fasting- pt will be getting done 1-2 weeks before appt us Aleksey Meléndez MD LAB URINE ORDERABLES Final Res ult [facility] ([facility]) 1 [facility] Department [place] [address] * eGFR (06/03/2021 11:45 AM LOG CARRIER OPERATOR) eGFR 109 mL/min/1. 73 m2 [facility] ([facility]) Comment: Interpretive Data Reference Interval Normal >/= [...] of Race in Diagnosing Kidney Disease, JASN 202). The CKD-EPI equation should not be used for patients with unstable renal function and has not been validated in children and those over 70. Current interpretive data was last reviewed 2021. Blood 06/03/2021 11:4 5 AM LOG CARRIER OPERATOR 06/03/2021 1:00 PM LOG CARRIER OPERATOR Aleksey Meléndez MD LAB BLOOD ORDERABLES Final Res ult Performing Organization Address [facility] Co de Phone Number [facility] ([place]) 1 [facility] [place] [address] * Hemoglobin A1c (06/03/2021 11:45 AM LOG CARRIER OPERATOR) Hgb A1C 5.5 4.0 - 5.6 % [facility] ([facility]) Estimated Average Glucose 111 mg/dL [facility] ([facility]) Comment: The ADA recommends reporting an estimated Average Glucose (eAG) with all Hemoglobin A1c results using the equation derived from a study of 507 normal and diabetic adults. Minority populations were underrepresented and children were not included. (Diabetes Care 31:6684-4585, 2008). The eAG is not equivalent to a fasting glucose. Blood 06/03/2021 11:4 5 AM LOG CARRIER OPERATOR 06/03/2021 1:00 PM LOG CARRIER OPERATOR Narrative [facility] ([facility] - 06/03/2021 1:58 PM LOG CARRIER OPERATOR Fasting- pt will be getting done 1-2 weeks before appt Aleksey Meléndez MD LAB BLOOD ORDERABLES Final Res ult Performing Organization Address [facility] Co de Phone Number [facility] ([place]) 1 [facility] [place] [address] * (ABNORMAL) Lipid panel (06/03/2021 11:45 AM LOG CARRIER OPERATOR) Cholesterol 218(H) 30 - 199 mg/dL [...] last revised on 2018. Chol/HDL ratio 7 [facility] ([facility]) Blood 06/03/2021 11:4 5 AM LOG CARRIER OPERATOR 06/03/2021 1:00 PM LOG CARRIER OPERATOR Narrative [facility] ([facility]) - 06/03/2021 1:25 PM LOG CARRIER OPERATOR Fasting- pt will be getting done 1-2 weeks before appt Aleksey Meléndez MD LAB BLOOD ORDERABLES Final Res ult [facility] ([facility]) 1 [facility] [place] [address] * DIABETES EYE EXAM (06/27/2019) Historical Provider HEALTH MAINTENANCE Edited Result - Final * Hepatitis C Antibody Reflex Hepatitis C RNA Quantitative PCR (03/27/2017 2:34 PM LOG CARRIER OPERATOR) Hep C Ab Negative Negative [facility] Blood specimen (specimen) 03/27/2017 2:34 PM LOG CARRIER OPERATOR 03/27/2017 2:34 PM LOG CARRIER OPERATOR us Aleksey Meléndez MD LAB MICROBIOLOGY - GENERAL ORD ERABLES Final Result [facility] [id number] Department [place] [address] * COLONOSCOPY (03/07/2016 12:00 AM CDT) Anatomical Region Laterality Modality Other Narrative 03/07/2016 12:00 AM CDT Ordered by an unspecified provider. Procedure Note Provider, MD Kevin - 03/07/2016 12:00 AM CDT PROCEDURE REPORT Patient: BELEM WHITT Service Date: 03/07/2016 Account: [id number] Room No: : 1965 Patient Type: [facility] Attend.: Eriberto Solorio M.D. Admit Date: 03/07/2016 [...] and we did a timeout. We used [employer]. The patient was placed in the left [...] 03/10/2016 03:51 PM CDT Eriberto Solorio M.D. /ams TD: 03/07/2016 10:10 CC: Aleksey Meléndez M.D. us Historical Provider ENDOSCOPY PROCEDURES Bridget l Result * Dexa Axial Skeleton Bone Density 1 or 2 Site (11/25/2015) Anatomical Region Laterality Modality Body N/A Radiographic Tania ging Narrative 11/25/2015 Results are already scanned in media us Historical Provider IMG DXA PROCEDURES Final Result from Last 3 Months or Most Recently Relevant to Health Maintenance Insurance [employer] CIGNA Care Teams Back Facer Relationship Specialty Start Date End Date Juancarlos Mendez MD PCP - General 12/28/21
--- NOTE | 2024-07-31 14:21 | ED.BACK ---
HPI - Back Pain/Injury General Chief Complaint: Back Pain/Injury <Cortney Blancas PA-C - Last Filed: 07/31/24 14:25> Stated Complaint: lower back pain <Cortney Blancas PA-C - Last Filed: 07/31/24 14:25> Time Seen by Provider: 07/31/24 14:21 <Cortney Blancas PA-C - Last Filed: 07/31/24 14:25> Focused HPI: patient is a 58-year-old female who presents the ED with report of lower back pain. Patient reports having increased pain since Monday. Denies any injury or strenuous activity. Denies heavy lifting. Pain present throughout her lower back, radiates to her thighs into her lower abdomen. Worse with any type of movement. Has been taking Flexeril and ibuprofen at home without improvement. Has been trying PT exercises without improvement. Denies saddle anesthesia, bowel or bladder incontinence, dysuria, hematuria. GENERAL: Well-appearing, well-nourished, and in no acute distress. HEAD: Normocephalic, atraumatic. CHEST: Clear to auscultation. ?No respiratory distress. HEART: Regular rate and rhythm.? MSK: Diffuse tenderness throughout lumbosacral region. Sensation intact. No bony abnormalities. NEURO: ?Alert and oriented x3. Patient screened in triage and initial orders placed.? ?Additional care and disposition to be based upon?diagnostic testing and treatment. <Cortney Blancas PA-C - Last Filed: 07/31/24 14:25> Source: patient <Cortney Blancas PA-C - Last Filed: 07/31/24 14:25> Mode of arrival: ambulatory <Cortney Blancas PA-C - Last Filed: 07/31/24 14:25> Limitations: no limitations <Cortney Blancas PA-C - Last Filed: 07/31/24 14:25> History of Present Illness HPI Narrative: I agree with the above HPI <César Messina MD - Last Filed: 07/31/24 21:19> Related Data Home Medications: Home Medications ?Medication ?Instructions ?Recorded ?Confirmed ?Last Taken ?Type cholecalciferol (vitamin D3) 125 125 mcg PO DAILY 10/20/21 04/30/24 Unknown History mcg (5,000 unit) capsule <Cortney Blancas PA-C - Last Filed: 07/31/24 14:25> Allergies/Adverse Reactions: Allergies Allergy/AdvReac Type Severity Reaction Status Date / Time Opioids - Morphine Analogues Allergy Severe Itching Verified 07/31/24 15:34 Penicillins Allergy Hives Verified 07/31/24 15:34 <Cortney Blancas PA-C - Last Filed: 07/31/24 14:25> Review of Systems Review of Systems: All systems reviewed & are unremarkable except as noted in HPI and below <César Messina MD - Last Filed: 07/31/24 21:19> PMFSH Family History Family History: Family History Mother Cancer Heart disease Depression Hypertension Sibling Alcohol abuse Diabetes mellitus Hypertension Depression <Cortney Blancas PA-C - Last Filed: 07/31/24 14:25> Social History Social History: Social History Smoking packs per day: 1 Smoking cigarettes per day: 20.0 Smoking status: Current every day smoker Alcohol intake: never Substance use: never Substance use type: does not use Lack of Transportation: No Lack of Food: Never True Current Housing: I Have Housing Concerned About Future Housing: No Difficulty Paying Gas/Electric Bills: No Difficulty Paying for Meds: No Currently Unemployed: No Education: High School Diploma/GED Difficulty w/ Childcare or Family Care: No Living arrangements: with family Additional occupation/education comments: Housewife Gender identity (if verbalized by the patient): Female Sexual Orientation (if Verbalized by the Patient): Straight or Heterosexual Agree to blood products: Yes <Cortney Blancas PA-C - Last Filed: 07/31/24 14:25> Exam Narrative: APPEARANCE: Well appearing, no pain, no distress, well-nourished. HEAD: normocephalic, atraumatic. EYES: PERRLA/EOMI, conjunctivae clear. NOSE: Normal no drainage EARS:TMS clear with good light reflex. THROAT: Pharynx clear, no exudate. NECK: Supple. No adenopathy, no masses. RESPIRATORY: Airway patent, respirations nonlabored. Clear to auscultation bilaterally, no rales, rhonchi, wheezing. CARDIOVASCULAR: Regular rate and rhythm without murmurs rubs or gallops. ABDOMINAL: Soft, nontender, nondistended, normal bowel sounds MUSCULOSKELETAL: Midline lower back tenderness to palpation NEURO: Alert. Cranial nerves II through XII intact. Good gait. Good coordination SKIN: Warm, dry. Normal Color <César Messina MD - Last Filed: 07/31/24 21:19> Course Vital Signs Vital signs: Vital Signs Temperature 97.6 F 07/31/24 12:12 Pulse Rate 91 07/31/24 12:12 Respiratory Rate 16 07/31/24 12:12 Blood Pressure 127/72 07/31/24 12:12 Pulse Oximetry 99 07/31/24 12:12 Oxygen Delivery Room Air 07/31/24 12:12 Temperature 97.0 F L 07/31/24 15:34 Pulse Rate 78 07/31/24 15:34 Respiratory Rate 16 07/31/24 15:34 Blood Pressure 127/73 07/31/24 15:34 Pulse Oximetry 99 07/31/24 15:34 Oxygen Delivery Room Air 07/31/24 12:12 <Cortney Blancas PA-C - Last Filed: 07/31/24 14:25> Vital Signs Temperature 97.6 F 07/31/24 12:12 Pulse Rate 91 07/31/24 12:12 Respiratory Rate 16 07/31/24 12:12 Blood Pressure 127/72 07/31/24 12:12 Pulse Oximetry 99 07/31/24 12:12 Oxygen Delivery Room Air 07/31/24 12:12 Temperature 97.0 F L 07/31/24 15:34 Pulse Rate 78 07/31/24 15:34 Respiratory Rate 16 07/31/24 15:34 Blood Pressure 127/73 07/31/24 15:34 Pulse Oximetry 99 07/31/24 15:34 Oxygen Delivery Room Air 07/31/24 12:12 <César Messina MD - Last Filed: 07/31/24 21:19> MDM - Back Pain/Injury MDM Narrative Medical decision making narrative: MSE by BASIL in triage. <Cortney Blancas PA-C - Last Filed: 07/31/24 14:25> MSE by BASIL in triage. 58-year-old female present to the emergency department for evaluation for lower back pain. CT scan showed no explanation for the pain showed dense reproducible back pain. Patient was encouraged close follow-up with her primary care physician and to have physical therapy if treatment plan did not help. <César Messina MD - Last Filed: 07/31/24 21:19> Differential Diagnosis Differential diagnosis: Likely lumbar radiculopathy, sciatica, strain of lumbar region, pyelonephritis and discitis <César Messina MD - Last Filed: 07/31/24 21:19> Discharge Plan Discharge Clinical Impression: Back strain <Cortney Blancas PA-C - Last Filed: 07/31/24 14:25> Patient Disposition: Home, Self-Care <Cortney Blancas PA-C - Last Filed: 07/31/24 14:25> Condition: Stable <Cortney Blancas PA-C - Last Filed: 07/31/24 14:25> Instructions: Antibiotic Form, Back Pain (ED) <Cortney Blancas PA-C - Last Filed: 07/31/24 14:25> Additional Instructions: Ibuprofen for pain control. Medrol Dosepak as directed until completed. Flexeril for muscle spasm. Have close follow-up with your primary care physician for outpatient physical therapy. If you have any worsening symptoms then please call or return to the emergency department. <Cortney Blancas PA-C - Last Filed: 07/31/24 14:25> Patient Language: Upper Sorbian <Cortney Blancas PA-C - Last Filed: 07/31/24 14:25> Prescriptions: New cyclobenzaprine 10 mg tablet 10 mg PO BID PRN (Reason: muscle spasm) Qty: 14 0RF methylprednisolone [Medrol ([place])] 4 mg tablets,dose pack See Rx Instructions .ROUTE .COMPLEX Qty: 21 0RF Rx Instructions: for 6 days No Action cholecalciferol (vitamin D3) 125 mcg (5,000 unit) capsule 125 mcg PO DAILY mupirocin 2 % ointment 1 applic topical TID PRN (Reason: rash or itching) Qty: 15 0RF celecoxib 100 mg capsule See Rx Instructions .ROUTE .COMPLEX Qty: 60 3RF Dose Instruction: Take 1 capsule by mouth twice daily Rx Instructions: Take 1 capsule by mouth twice daily losartan 50 mg tablet See Rx Instructions .ROUTE .COMPLEX Qty: 90 3RF Dose Instruction: Take 1 tablet by mouth once daily Rx Instructions: Take 1 tablet by mouth once daily Ozempic 1 mg/dose (4 mg/3 mL) pen injector 1 mg subcut WEEKLY 90 Days Qty: 9.75 3RF rosuvastatin [Crestor] 5 mg tablet 5 mg PO QHS Qty: 90 3RF omeprazole 40 mg capsule,delayed release(DR/EC) See Rx Instructions .ROUTE .COMPLEX Qty: 90 0RF Dose Instruction: Take 1 capsule by mouth once daily Rx Instructions: Take 1 capsule by mouth once daily metoprolol tartrate 50 mg tablet See Rx Instructions .ROUTE .COMPLEX Qty: 180 3RF Dose Instruction: Take 1 tablet by mouth twice daily Rx Instructions: Take 1 tablet by mouth twice daily <Cortney Blancas PA-C - Last Filed: 07/31/24 14:25> Follow-up/Referrals: Flor Bailey APRN [Primary Care Provider] - <Cortney Blancas PA-C - Last Filed: 07/31/24 14:25>
[2024-07-31] MEDS: LIDOCAINE 5% PATCH 1 PATCH TRANSDERM (14:52)
[2024-07-31] MEDS: KETOROLAC (*BKC) 60 MG/2 ML VIAL IM (14:52)
[2024-07-31] MEDS: ACETAMINOPHEN 500 MG TABLET 1000 MG PO (14:54)
[2024-07-31] MEDS: methocarbamoL 500 MG TABLET 1000 MG PO (14:54)
[2024-07-31 15:34] VITALS: BP 127/73; PULSE 78; RESP 16; TEMP 36.1; O2SAT 99
--- OUTSIDE RECORDS SUMMARY | 2024-07-31 17:22 | XMS_ITS | Referral Summary ---
Author Organization [facility] [address] Address [address] [place] [phone] Care Team Providers Care Occupational Medicine Officer Name Role Phone Juancarlos Mendez MD Primary Care Provider [phone] Allergies Active Allergy Reactions Criticality Noted Date [...] 03/30/2021 Assessment & Plan (03/30/2021 11:30 AM QA INTERNSHIP): It appears that the either small abscess, [...] 06/09/2020 Assessment & Plan (04/07/2020 9:05 AM QA INTERNSHIP): Pathology reviewed with the patient as lipoma. [...] 21 Assessment & Plan (07/02/2019 10:39 AM QA INTERNSHIP): Continue packing changes. Will likely need to be done for another 3-4 days. She will call us back for any further questions or concerns. Assessment & Plan (06/25/2019 10:33 AM QA INTERNSHIP): I will plan to open the abscess [...] (10/18/2017): Added automatically from request for surgery [id number] Pure hypercholesterolemia 09/28/2013 Overview (08/19/2016): PURE HYPERCHOLESTEROLEM [...] on file Legal Sex Female 8:05 PM QA INTERNSHIP Gender Identity Not on file Sexual Orientation [...] CREATININE RATIO, URINE Routine 06/03/2021 2:32 PM QA INTERNSHIP Annual physical exam Essential hypertension EGFR Routine 06/03/2021 11:45 AM QA INTERNSHIP Annual physical exam Essential hypertension HEMOGLOBIN A1C Routine 06/03/2021 11:45 AM QA INTERNSHIP Annual physical exam Type 2 diabetes mellitus with hyperlipidemia (HCC) LIPID PANEL Routine 06/03/2021 11:45 AM QA INTERNSHIP Annual physical exam Mixed hyperlipidemia HM DIABETES EYE EXAM Routine 06/27/2019 HEPATITIS C AB REFLEX RNA QUANT PCR Routine 03/27/2017 2:34 PM QA INTERNSHIP COLONOSCOPY 03/07/2016 12:00 AM CDT DEXA AXIAL [...] Albumin Creatinine Ratio, Urine (06/03/2021 2:32 PM QA INTERNSHIP) Albumin Ur <12.0 mg/L [facility] ([facility]) Comment: Interpretive Data No reference range established. Current interpretive data was last revised 2018. Testing performed by: [address] [address] Creatinine Ur 119.6 mg/dL [facility] ([facility]) Comment: Interpretive Data No reference range established. Current interpretive data was last revised 2018. Testing performed by: [address] [address] Albumin Creatinine Ratio, Ur <10 1 - 29 mg/g [facility] ([facility]) Comment:Testing performed by : [facility], [address] [place] [address]., [address] Urine 06/03/2021 2:32 PM QA INTERNSHIP 06/03/2021 8:46 PM QA INTERNSHIP Narrative [facility] ([facility]) - 06/03/2021 9:29 PM QA INTERNSHIP Fasting- pt will be getting done 1-2 weeks before appt us Aleksey Meléndez MD LAB URINE ORDERABLES Final Res ult [facility] ([place]) 1 [facility] Department [place] [address] * eGFR (06/03/2021 11:45 AM QA INTERNSHIP) eGFR 109 mL/min/1. 73 m2 [facility] [...] reviewed 2021. Blood 06/03/2021 11:4 5 AM QA INTERNSHIP 06/03/2021 1:00 PM QA INTERNSHIP Aleksey Meléndez MD LAB BLOOD ORDERABLES Final Res ult Performing Organization Address [facility] Co de Phone Number [facility] ([place]) 1 [facility] [place] [address] * Hemoglobin A1c (06/03/2021 11:45 AM QA INTERNSHIP) Hgb A1C 5.5 4.0 - 5.6 % [facility] ([facility]) Estimated Average Glucose 111 mg/dL [facility] ([facility]) Comment: The ADA recommends reporting an estimated Average Glucose (eAG) with all Hemoglobin A1c results using the equation derived from a study of 507 normal and diabetic adults. Minority populations were underrepresented and children were not included. (Diabetes Care 31:9813-2437, 2008). The eAG is not equivalent to a fasting glucose. Blood 06/03/2021 11:4 5 AM QA INTERNSHIP 06/03/2021 1:00 PM QA INTERNSHIP Narrative [facility] ([facility] - 06/03/2021 1:58 PM QA INTERNSHIP Fasting- pt will be getting done 1-2 weeks before appt Aleksey Meléndez MD LAB BLOOD ORDERABLES Final Res ult Performing Organization Address [facility] Co de Phone Number [facility] ([place]) 1 [facility] [place] [address] * (ABNORMAL) Lipid panel (06/03/2021 11:45 AM QA INTERNSHIP) Cholesterol 218(H) 30 - 199 mg/dL [facility] [...] [facility] ([facility]) Blood 06/03/2021 11:4 5 AM QA INTERNSHIP 06/03/2021 1:00 PM QA INTERNSHIP Narrative [facility] ([facility]) - 06/03/2021 1:25 PM QA INTERNSHIP Fasting- pt will be getting done 1-2 weeks before appt Aleksey Meléndez MD LAB BLOOD ORDERABLES Final Res ult [facility] ([place]) 1 [facility] Department [place] [address] * DIABETES EYE EXAM (06/27/2019) Historical Provider HEALTH MAINTENANCE Edited Result - Final * Hepatitis C Antibody Reflex Hepatitis C RNA Quantitative PCR (03/27/2017 2:34 PM QA INTERNSHIP) Hep C Ab Negative Negative [facility] Blood specimen (specimen) 03/27/2017 2:34 PM QA INTERNSHIP 03/27/2017 2:34 PM QA INTERNSHIP us Aleksey Meléndez MD LAB MICROBIOLOGY - GENERAL ORD ERABLES Final Result [facility] [id number] Department [place] [address] * COLONOSCOPY (03/07/2016 12:00 AM CDT) Anatomical Region Laterality Modality Other Narrative 03/07/2016 12:00 AM CDT Ordered by an unspecified provider. Procedure Note Provider, MD Kevin - 03/07/2016 12:00 AM CDT PROCEDURE REPORT Patient: BELEM WHITT Service Date: 03/07/2016 Account: [id number] Room No: : 1965 Patient Type: [facility] Attend.: Eriberto Solorio M.D. Admit Date: 03/07/2016 [...] and we did a timeout. We used [employer]. The patient was placed in the left [...] Most Recently Relevant to Health Maintenance Insurance [email or web address] C[employer] Care Teams Occupational Medicine Officer Relationship Specialty Start Date End Date Juancarlos Mendez MD PCP - General 12/28/21
--- OUTSIDE RECORDS SUMMARY | 2024-07-31 17:22 | XMS_ITS | Clinical Summary ---
Author Organization [facility] [address] Address [address] [place] [id number] Care Team Providers Care Entry Level Staff Accountant Name Role Phone Juancarlos Mendez MD Primary Care Provider [phone] Allergies Active Allergy Reactions Criticality Noted Date [...] 03/30/2021 Assessment & Plan (03/30/2021 11:30 AM CORNER BLOCK CUTTER): It appears that the either small abscess, [...] 06/09/2020 Assessment & Plan (04/07/2020 9:05 AM CORNER BLOCK CUTTER): Pathology reviewed with the patient as lipoma. [...] 21 Assessment & Plan (07/02/2019 10:39 AM CORNER BLOCK CUTTER): Continue packing changes. Will likely need to be done for another 3-4 days. She will call us back for any further questions or concerns. Assessment & Plan (06/25/2019 10:33 AM CORNER BLOCK CUTTER): I will plan to open the abscess [...] (10/18/2017): Added automatically from request for surgery [id number] Pure hypercholesterolemia 09/28/2013 Overview (08/19/2016): PURE HYPERCHOLESTEROLEM [...] on file Legal Sex Female 8:05 PM CORNER BLOCK CUTTER Gender Identity Not on file Sexual Orientation [...] CREATININE RATIO, URINE Routine 06/03/2021 2:32 PM CORNER BLOCK CUTTER Annual physical exam Essential hypertension EGFR Routine 06/03/2021 11:45 AM CORNER BLOCK CUTTER Annual physical exam Essential hypertension HEMOGLOBIN A1C Routine 06/03/2021 11:45 AM CORNER BLOCK CUTTER Annual physical exam Type 2 diabetes mellitus with hyperlipidemia (HCC) LIPID PANEL Routine 06/03/2021 11:45 AM CORNER BLOCK CUTTER Annual physical exam Mixed hyperlipidemia HM DIABETES EYE EXAM Routine 06/27/2019 HEPATITIS C AB REFLEX RNA QUANT PCR Routine 03/27/2017 2:34 PM CORNER BLOCK CUTTER COLONOSCOPY 03/07/2016 12:00 AM CDT DEXA AXIAL [...] Albumin Creatinine Ratio, Urine (06/03/2021 2:32 PM CORNER BLOCK CUTTER) Albumin Ur <12.0 mg/L GRAYSON Kearney ([facility]) Comment: Interpretive Data No reference range established. Current interpretive data was last revised 2018. Testing performed by: [facility], [address] [place] [address], [place]., [address] Creatinine Ur 119.6 mg/dL GRAYSON WOO ([place]) Comment: Interpretive Data No reference range established. Current interpretive data was last revised 2018. Testing performed by: [facility], [address] [place] [address]., [id number] Albumin Creatinine Ratio, Ur <10 1 - 29 mg/g GRAYSON WOO ([place]) Comment:Testing performed by : [facility], [address] [place] [address]., [id number] Urine 06/03/2021 2:32 PM CORNER BLOCK CUTTER 06/03/2021 8:46 PM CORNER BLOCK CUTTER Narrative GRAYSON WOO ([place]) - 06/03/2021 9:29 PM CORNER BLOCK CUTTER Fasting- pt will be getting done 1-2 weeks before appt us Aleksey Meléndez MD LAB URINE ORDERABLES Final Res ult [facility]RA[facility] WOO ([place]) 1 [facility] [place] [address] * eGFR (06/03/2021 11:45 AM CORNER BLOCK CUTTER) eGFR 109 mL/min/1. 73 m2 [facility] WOO ([place]) Comment: Interpretive Data Reference Interval Normal >/= [...] reviewed 2021. Blood 06/03/2021 11:4 5 AM CORNER BLOCK CUTTER 06/03/2021 1:00 PM CORNER BLOCK CUTTER us Aleksey Meléndez MD LAB BLOOD ORDERABLES Final Res ult Performing Organization Address City/[facility]/ZIP Co de Phone Number GRAYSON WOO ([place]) 1 [facility] [place] [address] * Hemoglobin A1c (06/03/2021 11:45 AM CORNER BLOCK CUTTER) Hgb A1C 5.5 4.0 - 5.6 % GRAYSON WOO ([place]) Estimated Average Glucose 111 mg/dL GRAYSON WOO ([place]) Comment: The ADA recommends reporting an estimated Average Glucose (eAG) with all Hemoglobin A1c results using the equation derived from a study of 507 normal and diabetic adults. Minority populations were underrepresented and children were not included. (Diabetes Care 31:4240-8333, 2008). The eAG is not equivalent to a fasting glucose. Blood 06/03/2021 11:4 5 AM CORNER BLOCK CUTTER 06/03/2021 1:00 PM CORNER BLOCK CUTTER Narrative TESSYLAURA CHILO ([place]) - 06/03/2021 1:58 PM CORNER BLOCK CUTTER Fasting- pt will be getting done 1-2 weeks before appt Aleksey Meléndez MD LAB BLOOD ORDERABLES Final Res ult Performing Organization Address [facility] Co de Phone Number GRAYSON WOO ([place]) 1 [facility] [email or web address] [address] * (ABNORMAL) Lipid panel (06/03/2021 11:45 AM CORNER BLOCK CUTTER) Cholesterol 218(H) 30 - 199 mg/dL G[facility]ON [...] [facility] ([place]) Blood 06/03/2021 11:4 5 AM CORNER BLOCK CUTTER 06/03/2021 1:00 PM CORNER BLOCK CUTTER Narrative [facility] ([place]) - 06/03/2021 1:25 PM CORNER BLOCK CUTTER Fasting- pt will be getting done 1-2 weeks before appt Aleksey Meléndez MD LAB BLOOD ORDERABLES Final Res ult GRA[facility]ON WOO ([place]) 1 [facility] Department [place] [address] * DIABETES EYE EXAM (06/27/2019) Kevin Provider HEALTH MAINTENANCE Edited Result - Final * Hepatitis C Antibody Reflex Hepatitis C RNA Quantitative PCR (03/27/2017 2:34 PM CORNER BLOCK CUTTER) Hep C Ab Negative Negative GRAYSON CADE Blood specimen (specimen) 03/27/2017 2:34 PM CORNER BLOCK CUTTER 03/27/2017 2:34 PM CORNER BLOCK CUTTER Aleksey Meléndez MD LAB MICROBIOLOGY - GENERAL ORD ERABLES Final Result GRAYSON [address] Department of Laboratories [place], [place] [id number] * COLONOSCOPY (03/07/2016 12:00 AM CDT) Anatomical Region Laterality Modality Other Narrative 03/07/2016 12:00 AM CDT Ordered by an unspecified provider. Procedure Note ProviderKevin MD - 03/07/2016 12:00 AM CDT PROCEDURE REPORT Patient: BELEM WHITT Service Date: 03/07/2016 Account: [id number] Room No: : 1965 Patient Type: [facility] Attend.: Eriberto Solorio M.D. Admit Date: 03/07/2016 [...] Maintenance Insurance CIGNA CIGNA CIGNA Care Teams Entry Level Staff Accountant Relationship Specialty Start Date End Date Juancarlos Mendez MD PCP - General 12/28/21
--- OUTSIDE RECORDS SUMMARY | 2024-07-31 17:22 | XMS_ITS | Encounter Summary ---
Author Organization [facility] Address [address] [place] [address] Phone Care Team Providers Care Programming Manager Name Role Phone Aleksey Meléndez MD Primary Care Provider [phone] Juancarlos Mendez MD Primary Care Provider [phone] Encounter Details Date Type Department Care Team (Late st Contact Info) Description 10/13/2017 Orders Only [facility] ProviderKevin MD [address] [place], [place] [id number] Social History Tobacco Use Types Packs/Day Years Used Date Smoking Tobacco: Heavy Smoker Smokeless Tobacco: Never Comments:Smoking History Pac ks/day: 1 Packs Alcohol Use Standard Drinks/Week Comments Yes 0 (1 standard drink = 0.6 oz pur e alcohol) Comments Unknown Sex and Gender Information Value Date Recorded Sex Assigned at Not on file Legal Sex Female 8:05 PM STONE SETTER APPRENTICE Gender Identity Not on file Sexual Orientation [...] documented as of this encounter Care Teams Programming Manager Relationship Specialty Start Date End Date Aleksey Meléndez MD PCP - General 08/12/16 12/27/21 Juancarlos Mendez MD PCP - General 12/28/21 documented as of this encounter
--- OUTSIDE RECORDS SUMMARY | 2024-07-31 17:22 | XMS_ITS | Encounter Summary ---
Author Organization [facility] Address [address] [place] [address] Phone Care Team Providers Care Vice President Business & Corporate Development Name Role Phone Aleksey Meléndez MD Primary Care Provider [phone] Juancarlos Mendez MD Primary Care Provider [phone] Encounter Details Date Type Department Care Team (Late st Contact Info) Description 09/29/2017 Orders Only [facility] ProviderKevin MD [address] [place], [place] [id number] Social History Tobacco Use Types Packs/Day Years Used Date Smoking Tobacco: Heavy Smoker Smokeless Tobacco: Never Comments:Smoking History Pac ks/day: 1 Packs Alcohol Use Standard Drinks/Week Comments Yes 0 (1 standard drink = 0.6 oz pur e alcohol) Comments Unknown Sex and Gender Information Value Date Recorded Sex Assigned at Not on file Legal Sex Female 8:05 PM SCREEN MAKING TECHNICIAN Gender Identity Not on file Sexual Orientation [...] documented as of this encounter Care Teams Vice President Business & Corporate Development Relationship Specialty Start Date End Date Aleksey Meléndez MD PCP - General 08/12/16 12/27/21 Juancarlos Mendez MD PCP - General 12/28/21 documented as of this encounter
== END 2024-07-31 18:14 | disposition home or self-care (01) ==
PROVIDERS: Emergency Provider Emergency Medicine; PCP Nurse Practitioner Adult Health
DX: S39.012A Strain of muscle, fascia and tendon of lower back, initial encounter (principal); F17.210 Nicotine dependence, cigarettes, uncomplicated; X58.XXXA Exposure to other specified factors, initial encounter
CPT/HCPCS: 72131; 74176; 96372; 99284; A9270; J1885

== ENCOUNTER 2024-10-21 11:45 | Outpatient (CLI) | payer OTHER, SELFPAY ==
--- NOTE | ~2024-10-21 | XR_ITS ---
Right Shoulder Technique: AP and scapular Y views were obtained. Clinical History: Pain Findings: No fracture or dislocation is seen. Osseous alignment is anatomic. The glenohumeral and acr omioclavicular joint spaces are preserved. Soft tissues are unremarkable. Impression: Unremarkable right shoulder radiographs. Reviewed, dictated and finalized at [facility]. Impression: Unremarkable right shoulder radiographs.
== END 2024-10-21 11:46 | disposition home or self-care (01) ==
LOC: ANHBWCIMG 11:46
PROVIDERS: PCP Nurse Practitioner Adult Health; Visit Provider Nurse Practitioner Adult Health
DX: M25.511 Pain in right shoulder (principal)
CPT/HCPCS: 73030

== ENCOUNTER 2024-10-30 09:00 | Outpatient (CLI) | payer OTHER, SELFPAY ==
--- OUTSIDE RECORDS SUMMARY | 2024-10-30 09:34 | XMS_ITS | Clinical Summary ---
Author Organization [facility] [address] [place] [address] Address [address] [place] [address] Care Team Providers Care Inventory Control Clerk Name Role Phone Juancarlos Mendez MD Primary Care Provider [phone] Allergies Active Allergy Reactions Criticality Noted Date [...] 03/30/2021 Assessment & Plan (03/30/2021 11:30 AM BACKEND JAVA DEVELOPER): It appears that the either small abscess, [...] 06/09/2020 Assessment & Plan (04/07/2020 9:05 AM BACKEND JAVA DEVELOPER): Pathology reviewed with the patient as lipoma. [...] 21 Assessment & Plan (07/02/2019 10:39 AM BACKEND JAVA DEVELOPER): Continue packing changes. Will likely need to be done for another 3-4 days. She will call us back for any further questions or concerns. Assessment & Plan (06/25/2019 10:33 AM BACKEND JAVA DEVELOPER): I will plan to open the abscess [...] (10/18/2017): Added automatically from request for surgery [id number] Pure hypercholesterolemia 09/28/2013 Overview (08/19/2016): PURE HYPERCHOLESTEROLEM [...] on file Legal Sex Female 8:05 PM BACKEND JAVA DEVELOPER Gender Identity Not on file Sexual Orientation [...] P M CDT Height 170.2 cm (5' 7) 12/24/2021 6:20 PM CDT Body Mass Index [...] 10/25/2016, 10/09/2015, Additional history exists Influenza Vaccine (Season Ended) 2025 Colon Cancer Screening-Colonoscopy 03/07/2026 03/07/2016, 03/07/2016, 01/24/2011 [...] CREATININE RATIO, URINE Routine 06/03/2021 2:32 PM BACKEND JAVA DEVELOPER Annual physical exam Essential hypertension EGFR Routine 06/03/2021 11:45 AM BACKEND JAVA DEVELOPER Annual physical exam Essential hypertension HEMOGLOBIN A1C Routine 06/03/2021 11:45 AM BACKEND JAVA DEVELOPER Annual physical exam Type 2 diabetes mellitus with hyperlipidemia (HCC) LIPID PANEL Routine 06/03/2021 11:45 AM BACKEND JAVA DEVELOPER Annual physical exam Mixed hyperlipidemia HM DIABETES EYE EXAM Routine 06/27/2019 HEPATITIS C AB REFLEX RNA QUANT PCR Routine 03/27/2017 2:34 PM BACKEND JAVA DEVELOPER COLONOSCOPY 03/07/2016 12:00 AM CDT DEXA AXIAL [...] Albumin Creatinine Ratio, Urine (06/03/2021 2:32 PM BACKEND JAVA DEVELOPER) Albumin Ur <12.0 mg/L GRAYSON [place] ([facility]) Comment: Interpretive Data No reference range established. Current interpretive data was last revised 2018. Testing performed by: [facility], [address] [place] [address], [place]., [address] Creatinine Ur 119.6 mg/dL GRAYSON WOO ([place]) Comment: Interpretive Data No reference range established. Current interpretive data was last revised 2018. Testing performed by: [facility], [address] [place] [address]., [address] Albumin Creatinine Ratio, Ur <10 1 - 29 mg/g GRAYSON WOO ([place]) Comment:Testing performed by : [facility], [address] [place] [address]., [address] Urine 06/03/2021 2:32 PM BACKEND JAVA DEVELOPER 06/03/2021 8:46 PM BACKEND JAVA DEVELOPER Narrative GRAYSON WOO ([place]) - 06/03/2021 9:29 PM BACKEND JAVA DEVELOPER Fasting- pt will be getting done 1-2 weeks before appt us Aleksey Meléndez MD LAB URINE ORDERABLES Final Res ult GRA[facility]ON WOO ([place]) 1 [facility] Department [place] [address] * eGFR (06/03/2021 11:45 AM BACKEND JAVA DEVELOPER) eGFR 109 mL/min/1. 73 m2 GRAYSON WOO ([place]) Comment: Interpretive Data Reference Interval Normal >/= [...] reviewed 2021. Blood 06/03/2021 11:4 5 AM BACKEND JAVA DEVELOPER 06/03/2021 1:00 PM BACKEND JAVA DEVELOPER us Aleksey Meléndez MD LAB BLOOD ORDERABLES Final Res ult Performing Organization Address City/[facility]/ZIP Co de Phone Number GRAYSON WOO ([place]) 1 [facility] [place] [address] * Hemoglobin A1c (06/03/2021 11:45 AM BACKEND JAVA DEVELOPER) Hgb A1C 5.5 4.0 - 5.6 % GRAYSON WOO ([place]) Estimated Average Glucose 111 mg/dL GRA[facility]ON WOO ([place]) Comment: The ADA recommends reporting an estimated Average Glucose (eAG) with all Hemoglobin A1c results using the equation derived from a study of 507 normal and diabetic adults. Minority populations were underrepresented and children were not included. (Diabetes Care 31:2236-0011, 2008). The eAG is not equivalent to a fasting glucose. Blood 06/03/2021 11:4 5 AM BACKEND JAVA DEVELOPER 06/03/2021 1:00 PM BACKEND JAVA DEVELOPER Narrative TESSYLAURA CHILO ([place]) - 06/03/2021 1:58 PM BACKEND JAVA DEVELOPER Fasting- pt will be getting done 1-2 weeks before appt Aleksey Meléndez MD LAB BLOOD ORDERABLES Final Res ult Performing Organization Address [facility] Co de Phone Number RGAYSON WOO ([place]) [address] [facility] [place] [address] * (ABNORMAL) Lipid panel (06/03/2021 11:45 AM BACKEND JAVA DEVELOPER) Cholesterol 218(H) 30 - 199 mg/dL GRAYSON [...] [facility] ([place]) Blood 06/03/2021 11:4 5 AM BACKEND JAVA DEVELOPER 06/03/2021 1:00 PM BACKEND JAVA DEVELOPER Narrative [facility] ([place]) - 06/03/2021 1:25 PM BACKEND JAVA DEVELOPER Fasting- pt will be getting done 1-2 weeks before appt Aleksey Meléndez MD LAB BLOOD ORDERABLES Final Res ult GRAYSON WOO ([place]) 1 [facility] Department [place] [address] * DIABETES EYE EXAM (06/27/2019) Kevin Provider HEALTH MAINTENANCE Edited Result - Final * Hepatitis C Antibody Reflex Hepatitis C RNA Quantitative PCR (03/27/2017 2:34 PM BACKEND JAVA DEVELOPER) Hep C Ab Negative Negative GRAYSON CADE Blood specimen (specimen) 03/27/2017 2:34 PM BACKEND JAVA DEVELOPER 03/27/2017 2:34 PM BACKEND JAVA DEVELOPER Aleksey Meléndez MD LAB MICROBIOLOGY - GENERAL ORD ERABLES Final Result G[facility] [address] Department of Laboratories [place], [place] [id number] * COLONOSCOPY (03/07/2016 12:00 AM CDT) Anatomical Region Laterality Modality Other Narrative 03/07/2016 12:00 AM CDT Ordered by an unspecified provider. Procedure Note ProviderKevin MD - 03/07/2016 12:00 AM CDT PROCEDURE REPORT Patient: BELEM WHITT Service Date: 03/07/2016 Account: [id number] Room No: : 1965 Patient Type: [facility] Attend.: Eriberto Solorio M.D. Admit Date: 03/07/2016 [...] Maintenance Insurance CIGNA CIGNA CIGNA Care Teams Inventory Control Clerk Relationship Specialty Start Date End Date Juancarlos Mendez MD PCP - General 12/28/21
--- OUTSIDE RECORDS SUMMARY | 2024-10-30 09:34 | XMS_ITS | Referral Summary ---
Author Organization [facility] [address] Address [address] [place] [id number] Care Team Providers Care Talent Engineer Name Role Phone Juancarlos Mendez MD Primary Care Provider [phone] Allergies Active Allergy Reactions Criticality Noted Date [...] 03/30/2021 Assessment & Plan (03/30/2021 11:30 AM DIRECTOR HOME HEALTH): It appears that the either small abscess, [...] 06/09/2020 Assessment & Plan (04/07/2020 9:05 AM DIRECTOR HOME HEALTH): Pathology reviewed with the patient as lipoma. [...] 21 Assessment & Plan (07/02/2019 10:39 AM DIRECTOR HOME HEALTH): Continue packing changes. Will likely need to be done for another 3-4 days. She will call us back for any further questions or concerns. Assessment & Plan (06/25/2019 10:33 AM DIRECTOR HOME HEALTH): I will plan to open the abscess [...] (10/18/2017): Added automatically from request for surgery [id number] Pure hypercholesterolemia 09/28/2013 Overview (08/19/2016): PURE HYPERCHOLESTEROLEM [...] on file Legal Sex Female 8:05 PM DIRECTOR HOME HEALTH Gender Identity Not on file Sexual Orientation [...] CREATININE RATIO, URINE Routine 06/03/2021 2:32 PM DIRECTOR HOME HEALTH Annual physical exam Essential hypertension EGFR Routine 06/03/2021 11:45 AM DIRECTOR HOME HEALTH Annual physical exam Essential hypertension HEMOGLOBIN A1C Routine 06/03/2021 11:45 AM DIRECTOR HOME HEALTH Annual physical exam Type 2 diabetes mellitus with hyperlipidemia (HCC) LIPID PANEL Routine 06/03/2021 11:45 AM DIRECTOR HOME HEALTH Annual physical exam Mixed hyperlipidemia HM DIABETES EYE EXAM Routine 06/27/2019 HEPATITIS C AB REFLEX RNA QUANT PCR Routine 03/27/2017 2:34 PM DIRECTOR HOME HEALTH COLONOSCOPY 03/07/2016 12:00 AM CDT DEXA AXIAL [...] Albumin Creatinine Ratio, Urine (06/03/2021 2:32 PM DIRECTOR HOME HEALTH) Albumin Ur <12.0 mg/L [facility] ([facility]) Comment: Interpretive Data No reference range established. Current interpretive data was last revised 2018. Testing performed by: [address] [address] Creatinine Ur 119.6 mg/dL [facility] ([facility]) Comment: Interpretive Data No reference range established. Current interpretive data was last revised 2018. Testing performed by: [address] [address] Albumin Creatinine Ratio, Ur <10 1 - 29 mg/g [facility] ([facility]) Comment:Testing performed by : [facility], [address] [place] [address]., [id number] Urine 06/03/2021 2:32 PM DIRECTOR HOME HEALTH 06/03/2021 8:46 PM DIRECTOR HOME HEALTH Narrative [facility] ([facility]) - 06/03/2021 9:29 PM DIRECTOR HOME HEALTH Fasting- pt will be getting done 1-2 weeks before appt us Aleksey Meléndez MD LAB URINE ORDERABLES Final Res ult [facility] ([facility]) [address] [facility] [place] [address] * eGFR (06/03/2021 11:45 AM DIRECTOR HOME HEALTH) eGFR 109 mL/min/1. 73 m2 [facility] [...] reviewed 2021. Blood 06/03/2021 11:4 5 AM DIRECTOR HOME HEALTH 06/03/2021 1:00 PM DIRECTOR HOME HEALTH Aleksey Meléndez MD LAB BLOOD ORDERABLES Final Res ult Performing Organization Address [facility] Co de Phone Number [facility] ([place]) [address] [facility] [place] [address] * Hemoglobin A1c (06/03/2021 11:45 AM DIRECTOR HOME HEALTH) Hgb A1C 5.5 4.0 - 5.6 % [facility] ([facility]) Estimated Average Glucose 111 mg/dL [facility] ([facility]) Comment: The ADA recommends reporting an estimated Average Glucose (eAG) with all Hemoglobin A1c results using the equation derived from a study of 507 normal and diabetic adults. Minority populations were underrepresented and children were not included. (Diabetes Care 31:3986-0797, 2008). The eAG is not equivalent to a fasting glucose. Blood 06/03/2021 11:4 5 AM DIRECTOR HOME HEALTH 06/03/2021 1:00 PM DIRECTOR HOME HEALTH N[facility]ative [facility] - 06/03/2021 1:58 PM DIRECTOR HOME HEALTH Fasting- pt will be getting done 1-2 weeks before appt Aleksey Meléndez MD LAB BLOOD ORDERABLES Final Res ult Performing Organization Address [facility] Co de Phone Number [facility] ([place]) [address] [facility] [place] [address] * (ABNORMAL) Lipid panel (06/03/2021 11:45 AM DIRECTOR HOME HEALTH) Cholesterol 218(H) 30 - 199 mg/dL [facility] [...] [facility] ([facility]) Blood 06/03/2021 11:4 5 AM DIRECTOR HOME HEALTH 06/03/2021 1:00 PM DIRECTOR HOME HEALTH Narrative [facility] ([facility]) - 06/03/2021 1:25 PM DIRECTOR HOME HEALTH Fasting- pt will be getting done 1-2 weeks before appt Aleksey Meléndez MD LAB BLOOD ORDERABLES Final Res ult [facility] ([place]) [address] [facility] [place] [address] * DIABETES EYE EXAM (06/27/2019) Historical Provider HEALTH MAINTENANCE Edited Result - Final * Hepatitis C Antibody Reflex Hepatitis C RNA Quantitative PCR (03/27/2017 2:34 PM DIRECTOR HOME HEALTH) Hep C Ab Negative Negative [facility] Blood specimen (specimen) 03/27/2017 2:34 PM DIRECTOR HOME HEALTH 03/27/2017 2:34 PM DIRECTOR HOME HEALTH us Aleksey Meléndez MD LAB MICROBIOLOGY - GENERAL ORD ERABLES Final Result [facility] [id number] Department [place] [address] * COLONOSCOPY (03/07/2016 12:00 AM CDT) Anatomical Region Laterality Modality Other Narrative 03/07/2016 12:00 AM CDT Ordered by an unspecified provider. Procedure Note Provider, MD Kevin - 03/07/2016 12:00 AM CDT PROCEDURE REPORT Patient: BELEM WHITT Service Date: 03/07/2016 Account: [id number] Room No: : 1965 Patient Type: [facility] Attend.: Eriberto Solorio M.D. Admit Date: 03/07/2016 [...] and we did a timeout. We used [employer]. The patient was placed in the left [...] Most Recently Relevant to Health Maintenance Insurance [employer] Care Teams Talent Engineer Relationship Specialty Start Date End Date Juancarlos Mendez MD PCP - General 12/28/21
--- OUTSIDE RECORDS SUMMARY | 2024-10-30 09:34 | XMS_ITS | Encounter Summary ---
Author Organization [facility] Address [address] [place] [address] Phone Care Team Providers Care Manufacturing Engineering Manager Name Role Phone Aleksey Meléndez MD Primary Care Provider [phone] Juancarlos Mendez MD Primary Care Provider [phone] Encounter Details Date Type Department Care Team (Late st Contact Info) Description 10/13/[address] [facility] ProviderKevin MD [address] [place], [place] [id number] Social History Tobacco Use Types Packs/Day Years Used Date Smoking Tobacco: Heavy Smoker Smokeless Tobacco: Never Comments:Smoking History Pac ks/day: 1 Packs Alcohol Use Standard Drinks/Week Comments Yes 0 (1 standard drink = 0.6 oz pur e alcohol) Comments Unknown Sex and Gender Information Value Date Recorded Sex Assigned at Not on file Legal Sex Female 8:05 PM CHINA DECORATOR Gender Identity Not on file Sexual Orientation [...] documented as of this encounter Care Teams Manufacturing Engineering Manager Relationship Specialty Start Date End Date Aleksey Meléndez MD PCP - General 08/12/16 12/27/21 Juancarlos Mendez MD PCP - General 12/28/21 documented as of this encounter
--- OUTSIDE RECORDS SUMMARY | 2024-10-30 09:34 | XMS_ITS | Encounter Summary ---
Author Organization [facility] Address [address] [place] [address] Phone Care Team Providers Care Hyperion Developer Name Role Phone Aleksey Meléndez MD Primary Care Provider [phone] Juancarlos Mendez MD Primary Care Provider [phone] Encounter Details Date Type Department Care Team (Late st Contact Info) Description 09/29/2017 Orders Only [facility] ProviderKevin MD [address] [place], [place] [id number] Social History Tobacco Use Types Packs/Day Years Used Date Smoking Tobacco: Heavy Smoker Smokeless Tobacco: Never Comments:Smoking History Pac ks/day: 1 Packs Alcohol Use Standard Drinks/Week Comments Yes 0 (1 standard drink = 0.6 oz pur e alcohol) Comments Unknown Sex and Gender Information Value Date Recorded Sex Assigned at Not on file Legal Sex Female 8:05 PM AUDITOR MEDICAL CLAIMS Gender Identity Not on file Sexual Orientation [...] documented as of this encounter Care Teams Hyperion Developer Relationship Specialty Start Date End Date Aleksey Meléndez MD PCP - General 08/12/16 12/27/21 Juancarlos Mendez MD PCP - General 12/28/21 documented as of this encounter
[2024-10-30 19:19] LABS: Alanine Aminotransferase 28 U/L (6-35); Albumin Level 4.2 g/dL (3.5-5.1); Alkaline Phosphatase 69 U/L (38-126); Anion Gap 6 mmol/L (4-12); Aspartate Amino Transferase 45 U/L (14-36); Bilirubin,Total 0.8 mg/dL (0.2-1.3); Blood Urea Nitrogen 12 mg/dL (7-17); Calcium 9.3 mg/dL (8.4-10.2); Carbon Dioxide 30 mmol/L (22-30); Chloride 104 mmol/L (98-107); Cholesterol 142 mg/dL (0-200); Estimated Glomerular Filt Rate > 60; Glucose 85 mg/dL (65-110); HDL Direct 35 mg/dL; Potassium 4.4 mmol/L (3.4-5.0); Sodium 140 mmol/L (137-145); Total Protein 7.5 g/dL (6.3-8.2); Triglycerides 171 mg/dL (<150)
[2024-10-30 19:25] LABS: Vitamin D 25 Hydroxy 73.9 ng/mL
[2024-10-30 19:29] LABS: LDL Cholesterol Direct 59 mg/dL
[2024-10-30 19:40] LABS: Creatinine Urine 18.7 mg/dL
[2024-10-30 19:52] LABS: Hemoglobin A1C 5.2 % (<5.7)
[2024-10-30 20:07] LABS: MALB Creatinine Ratio < 32.1 mg/g (0-30); Microalbumin Urine Random < 6.0 mg/L (0-16.7)
== END 2024-10-30 09:01 | disposition home or self-care (01) ==
LOC: ANHBWCLAB 09:01
PROVIDERS: PCP Nurse Practitioner Adult Health; Visit Provider Nurse Practitioner Adult Health
DX: E55.9 Vitamin D deficiency, unspecified (principal); E11.9 Type 2 diabetes mellitus without complications
CPT/HCPCS: 36415; 80053; 80061; 82043; 82306; 82565; 83036

== ENCOUNTER 2025-01-04 13:07 | Emergency (ER) | payer OTHER, SELFPAY ==
--- NOTE | ~2025-01-04 | XR_ITS ---
XR foot LT min 3V, XR ankle LT min 3V 01/04/2025 13:44 INDICATION: Left foot pain with swelling PROCEDURE: 4 views left foot and 4 views left ankle COMPARISON: 01/02/2024 FINDINGS: Fracture, dislocation or subluxation is not identified. Lisfranc joint intact. Prominent degenerative calcaneal enthesophytes. The soft tissues appear within normal limits. No foreign bodies are identified. IMPRESSION: 1: NO ACUTE BONE OR JOINT ABNORMALITY IDENTIFIED. Reviewed, dictated and finalized at location O. IMPRESSION: 1: NO ACUTE BONE OR JOINT ABNORMALITY IDENTIFIED.
[2025-01-04 13:09] VITALS: BP 124/87; PULSE 85; RESP 16; TEMP 36.6; O2SAT 99
--- OUTSIDE RECORDS SUMMARY | 2025-01-04 13:10 | XMS_ITS | Clinical Summary ---
Author Organization [facility] [place] [address] Address [address] [place] [address] Care Team Providers Care School Curriculum Developer Name Role Phone Juancarlos Mendez MD Primary Care Provider [phone] Allergies Active Allergy Reactions Criticality Noted Date [...] 03/30/2021 Assessment & Plan (03/30/2021 11:30 AM AGILE QA TESTER): It appears that the either small abscess, [...] 06/09/2020 Assessment & Plan (04/07/2020 9:05 AM AGILE QA TESTER): Pathology reviewed with the patient as lipoma. [...] 21 Assessment & Plan (07/02/2019 10:39 AM AGILE QA TESTER): Continue packing changes. Will likely need to be done for another 3-4 days. She will call us back for any further questions or concerns. Assessment & Plan (06/25/2019 10:33 AM AGILE QA TESTER): I will plan to open the abscess [...] (10/18/2017): Added automatically from request for surgery [id number] Pure hypercholesterolemia 09/28/2013 Overview (08/19/2016): PURE HYPERCHOLESTEROLEM Benign hypertension 09/28/2013 04/10/20 17 Overview (08/19/2016): BENIGN HYPERTENSION Carpal tunnel syndrome 04/27/201104/10 Overview (08/17/2016): Bilateral carpal tunnel syndrome Headache 04/27/2011 04/10/2017 Overview (08/17/2016): Headache Cephalalgia 02/17/2011 10/13/2017 Encounters Date Type Department Care Team Description 12/05/2024 6:31 AM CDT - 12/05/2024 11:59 PM CDT Hospital Encounter [facility] [address] [place] [address] Other specified disorders of kidney and ureter Discharge Disposition: Discharge to home or self care 12/05/2024 Orders Only [facility] [address] [place] [address] Provider, MD Kevin 11/11/2024 3:13 PM CDT - 11/11/2024 11:59 PM CDT Hospital Encounter [facility] [address] [place] [address] Sciatica, unspecified laterality; Low back pain with bilateral sciatica, unspecified back pain laterality, unspecified chronicity Discharge Disposition: Discharge to home or self care from Last 3 Months Immunizations Immunization Administration Dates Next Due Influenza, [...] (gastroesophageal reflux disease) Type 2 diabetes mellitus Family History Medical History Relation Name Comments [...] on file Legal Sex Female 8:05 PM AGILE QA TESTER Gender Identity Not on file Sexual Orientation [...] 10/09/2015, Additional history exists Influenza Vaccine (#1) 2025 Colon Cancer Screening-Colonoscopy 03/07/2026 03/07/2016, 03/07/2016, 01/24/2011 Colon Cancer Screening-CT Colonography Discontinued 03/07/2016, 03/07/2016, 01/24/2011 Colon Cancer Screening-DNA Stool Discontinued 03/07/2016, 03/07/2016, 01/24/2011 Colon Cancer Screening-FIT Discontinued 03/07, 03/07/2016, 01/24/2011 Colon Cancer Screening-Sigmoidoscopy Discontinued 03/07/2016, 03/07/2016, 01/24/2011 Hepatitis C Screening Completed 03/27/2017 Procedures Procedure Name Priority Date/Time Associated Diagnosis Comments MRI ABDOMEN KIDNEY W WO CONTRAST Schedule Routine, Read Routine (OP Routine) 12/05/2024 7:13 AM CDT Other specified disorders of kidney and ureter COMPREHENSIVE METABOLIC PANEL Routine 2024 6:42 AM CDT MRI LUMBAR SPINE WO CONTRAST Schedule Routine, Read Routine (OP Routine) 11/11/2024 3:59 PM CDT Sciatica, unspecified laterality Low back pain with bilateral sciatica, unspecified back pain laterality, unspecified chronicity DIAGNOSTIC MAMMOGRAM BILATERAL W DEAN Schedule Routine, Read Routine (OP Routine) 02/08/2022 1:01 PM CDT Mastodynia Encounter for other screening for malignant neoplasm of breast ALBUMIN CREATININE RATIO, URINE Routine 06/03/2021 2:32 PM AGILE QA TESTER Annual physical exam Essential hypertension EGFR Routine 06/03/2021 11:45 AM AGILE QA TESTER Annual physical exam Essential hypertension HEMOGLOBIN A1C Routine 06/03/2021 11:45 AM AGILE QA TESTER Annual physical exam Type 2 diabetes mellitus with hyperlipidemia (HCC) LIPID PANEL Routine 06/03/2021 11:45 AM AGILE QA TESTER Annual physical exam Mixed hyperlipidemia HM DIABETES EYE EXAM Routine 06/27/2019 HEPATITIS C AB REFLEX RNA QUANT PCR Routine 03/27/2017 2:34 PM AGILE QA TESTER COLONOSCOPY 03/07/2016 12:00 AM CDT DEXA AXIAL SKELETON BONE DENSITY 1 OR MORE SITES Schedule Routine, Read Routine (OP Routine) 11/25/2015 from Last 3 Months or Most Recently Relevant to Health Maintenance Results * MRI Abdomen Kidney W WO Contrast (12/05/2024 7:13 AM CDT) Anatomical Region Laterality Modality Body N/A Magnetic Resonan ce 12/19/2024 2:20 PM CDT Narrative 12/19/2024 2:31 PM CDT EXAM DESCRIPTION: MRI ABDOMEN KIDNEY W WO CONTRAST REASON FOR STUDY: N28.89 Right lower flank pain started 2 months ago, spot found on right kidney a while ago TECHNIQUE: MR images of the abdomen were acquired without and with intravenous contrast according to the renal mass abdominal protocol. All images stored on PACS. CONTRAST TYPE/DOSE: 15mL of GADOTERATE MEGLUMINE 0.5 MMOL/ML INTRAVENOUS SOLUTION (SO) injected via intravenous COMPARISON: Lumbar spine MRI 11/11/2024 FINDINGS: KIDNEYS: No hydronephrosis. Right renal interpolar 1.5 cm lesion is consistent with a hemorrhagic/proteinaceous cyst. Additional smaller bilateral renal cortical simple cysts. No suspicious renal mass identified. LOWER CHEST: No effusion. LIVER: Normal size. No mass. No cysts. GALLBLADDER: Cholelithiasis. No gallbladder wall thickening or pericholecystic fluid. BILE DUCTS: No intrahepatic or extrahepatic ductal dilatation. SPLEEN: Normal size. No focal lesions. PANCREAS: No masses. No significant calcifications. No adjacent inflammation or peripancreatic fluid collections. Pancreatic duct not dilated. ADRENALS: Normal. GI: No visualized abnormality. PERITONEUM: No ascites. RETROPERITONEUM: No mass or adenopathy. VASCULATURE: No abdominal aortic aneurysm. MUSCULOSKELETAL: No acute findings. OTHER: No other abnormality. IMPRESSION: 1. Right renal interpolar 1.5 cm hemorrhagic versus proteinaceous cyst. Additional subcentimeter bilateral simple renal cysts. No suspicious renal lesion. 2. Cholelithiasis. THIS IS AN ELECTRONICALLY VERIFIED FINAL REPORT 12/19/2024 2:31 PM - Electronically signed by William Putnam M.D. KR: KR Report ID: [id number] Reading Location: [place] [address] Procedure Note William Putnam MD - 12/19/2024 EXAM DESCRIPTION: MRI ABDOMEN KIDNEY W WO CONTRAST REASON FOR STUDY: N28.89 Right lower flank pain started 2 months ago, spot found on right kidney a while ago TECHNIQUE: MR images of the abdomen were acquired without and with intravenous contrast according to the renal mass abdominal protocol. All images stored on PACS. CONTRAST TYPE/DOSE: 15mL of GADOTERATE MEGLUMINE 0.5 MMOL/ML INTRAVENOUS SOLUTION (SO) injected via intravenous COMPARISON: Lumbar spine MRI 11/11/2024 FINDINGS: KIDNEYS: No hydronephrosis. Right renal interpolar 1.5 cm lesion is consistent with a hemorrhagic/proteinaceous cyst. Additional smaller bilateral renal cortical simple cysts. No suspicious renal massidentified. LOWER CHEST: No effusion. LIVER: Normal size. No mass. No cysts. GALLBLADDER: Cholelithiasis. No gallbladder wall thickening or pericholecystic fluid. BILE DUCTS: No intrahepatic or extrahepatic ductal dilatation. SPLEEN: Normal size. No focal lesions. PANCREAS: No masses. No significant calcifications. No adjacentinflammation or peripancreatic fluid collections. Pancreatic duct not dilated. ADRENALS: Normal. GI: No visualized abnormality. PERITONEUM: No ascites. RETROPERITONEUM: No mass or adenopathy. VASCULATURE: No abdominal aortic aneurysm. MUSCULOSKELETAL: No acute findings. OTHER: No other abnormality. IMPRESSION: 1. Right renal interpolar 1.5 cm hemorrhagic versus proteinaceous cyst. Additional subcentimeter bilateral simple renal cysts. No suspiciousrenal lesion. 2. Cholelithiasis. THIS IS AN ELECTRONICALLY VERIFIED FINAL REPORT 12/19/2024 2:31 PM - Electronically signed by William Putnam M.D. KR: MARLEY Report ID: [id number] Reading Location: [id number] Flor Bailey NP IMG MRI PROCEDURES Final Resul t * Comprehensive metabolic panel (2024 6:42 AM CDT) Blood Historical Provider LAB BLOOD ORDERABLES Bridget l Result * MRI Lumbar Spine WO Contrast (11/11/2024 3:59 PM CDT) Anatomical Region Laterality Modality Spine N/A Magnetic Resonan ce 11/12/2024 11:3 9 AM CDT Narrative 11/12/2024 11:50 AM CDT EXAM DESCRIPTION: MRI LUMBAR SPINE WO CONTRAST REASON FOR STUDY: M54.30,M54.50 Mid-line lower back pain with bilateral sciatica, onset about a year ago, no known injury, no surgery TECHNIQUE: Sagittal and Axial imaging includes T1, T2, STIR sequences. COMPARISON: None available. FINDINGS: SEGMENTATION: For the purpose of the dictation assumption is made for the last well-formed disc space seen on series 8, image 36 to be labeled L5-S1. ALIGNMENT: Mild levoconvex curvature. Grade 1 retrolisthesis of L1 on L2 through L3 on L4. VERTEBRAE: Multifocal T1 hypointense, stir hyperintense marrow signal alteration involving the T12 vertebral body, portions of the L1 vertebral body and L2 vertebral body. These could be degenerative in nature but remain indeterminate without previous imaging studies for comparison. Request correlation with laboratory data if there is concern for an infectious process and attention on follow-up. If there is concern for metastases then recommend patient return for postcontrast imaging. A discrete fracture line is not visualized by MRI technique. The L2 vertebral body rounded T1 and T2 hyperintense signal would be compatible with intraosseous hemangioma. Multilevel endplate degenerative changes and marginal spur formation. There are inter spinous degenerative changes favoring the lower lumbar levels. DISC HEIGHT: Diffuse disc desiccation and height loss. HARDWARE: None in the spine. CORD/CAUDA: Conus medullaris terminates at L1. LOWER THORACIC: Incompletely imaged. Degenerative changes without high-grade spinal canal stenosis. INDIVIDUAL DISC LEVELS: L1-L2: Retrolisthesis of L1 on L2 with unroofing of the disc. Superimposed central/right subarticular disc protrusion with annular fissure. Bilateral facet arthropathy and trace facet joint effusion. Flattening of the ventral thecal sac. Right lateral recess effacement. No significant neural foraminal narrowing. L2-L3: Retrolisthesis of L2 on L3 with unroofing of the disc. Superimposed central disc protrusion with annular fissure. Bilateral facet arthropathy and facet joint effusion. Flattening of the ventral thecal sac. Mild neural foraminal narrowing. L3-L4: Retrolisthesis of L3 on L4 with unroofing of the disc. Superimposed left neural foraminal disc protrusion. Thickened ligamentum flavum and facet arthropathy. Trace facet joint effusion. Mild spinal canal stenosis. Lateral recess narrowing on both sides with disc abutting the descending L4 nerve roots. [id number]-ijjhsjde neural foraminal narrowing. L4-L5: Disc bulge with thickened ligamentum flavum and facet arthropathy. Flattening of the ventral thecal sac. Lateral recess narrowing on both sides. Psqz-fd-bhrjhxym neural foraminal narrowing. L5-S1: Disc bulge with bilateral facet arthropathy. No significant spinal canal stenosis. Mild right and severe left neural foraminal narrowing. Mass effect on the exiting left L5 nerve root. VISUALIZED UPPER ABDOMEN: Right renal posterior cortex partially imaged 1.4 cm T1 and T2 hyperintense lesion does not meet criteria for a simple cyst. Note made of nonspecific retroperitoneal lymph nodes. IMPRESSION: 1. Moderate lumbar disc degeneration with thickened ligamentum flavum and more advanced facet arthropathy as described. There is no high-grade spinal canal stenosis. 2. Varying degrees of bilateral neural foraminal stenosis ranging up to severe on the left at L5-S1 and additional findings as above. 3. The T12-L2 vertebral body T1 hypointense, stir hyperintense marrow signal alteration is indeterminate without previous imaging for comparison and presumed to be degenerative in nature. Please correlate with laboratory data if there is concern for an infectious process. If there is concern for metastases then recommend complete pre and postcontrast MRI. 4. Partially imaged right renal 1.4 cm lesion does not meet criteria for simple cyst. If this is a new finding for the patient then recommend contrast-enhanced renal protocol MRI. 5. Previous imaging studies are not available for comparison. THIS IS AN ELECTRONICALLY VERIFIED FINAL REPORT 11/12/2024 11:50 AM - Electronically signed by Volodymyr Pal D.O. AP: AP Report ID: [id number] Reading Location: [place] [address] Procedure Note Volodymyr Pal, DO - 11/12/2024 EXAM DESCRIPTION: MRI LUMBAR SPINE WO CONTRAST REASON FOR STUDY: M54.30,M54.50 Mid-line lower back pain with bilateral sciatica, onset about a year ago,no known injury, no surgery TECHNIQUE: Sagittal and Axial imaging includes T1, T2, STIR sequences. COMPARISON: None available. FINDINGS: SEGMENTATION: For the purpose of the dictation assumption is made forthe last well-formed disc space seen on series 8, image 36 to be labeledL5-S1. ALIGNMENT: Mild levoconvex curvature. Grade 1 retrolisthesis of L1 onL2 through L3 on L4. VERTEBRAE: Multifocal T1 hypointense, stir hyperintense marrow signal alteration involving the T12 vertebral body, portions of the L1 vertebralbody and L2 vertebral body. These could be degenerative in nature but remain indeterminate without previous imaging studies for comparison. Request correlation with laboratory data if there is concern for an infectiousprocess and attention on follow-up. If there is concern for metastases thenrecommend patient return for postcontrast imaging. A discrete fracture line is not visualized by MRI technique. The L2 vertebral body rounded T1 and T2 hyperintense signal would be compatible with intraosseous hemangioma. Multilevel endplate degenerative changes and marginal spur formation.There are inter spinous degenerative changes favoring the lower lumbar levels. DISC HEIGHT: Diffuse disc desiccation and height loss. HARDWARE: None in the spine. CORD/CAUDA: Conus medullaris terminates at L1. LOWER THORACIC: Incompletely imaged. Degenerative changes without high-grade spinal canal stenosis. INDIVIDUAL DISC LEVELS: L1-L2: Retrolisthesis of L1 on L2 with unroofing of the disc.Superimposed central/right subarticular disc protrusion with annular fissure.Bilateral facet arthropathy and trace facet joint effusion. Flattening of theventral thecal sac. Right lateral recess effacement. No significant neuralforaminal narrowing. L2-L3: Retrolisthesis of L2 on L3 with unroofing of the disc.Superimposed central disc protrusion with annular fissure. Bilateral facet arthropathyand facet joint effusion. Flattening of the ventral thecal sac. Mild neural foraminal narrowing. L3-L4: Retrolisthesis of L3 on L4 with unroofing of the disc.Superimposed left neural foraminal disc protrusion. Thickened ligamentum flavum andfacet arthropathy. Trace facet joint effusion. Mild spinal canal stenosis. Lateral recess narrowing on both sides with disc abutting the descendingL4 nerve roots. Aalv-oq-qfaaudzh neural foraminal narrowing. L4-L5: Disc bulge with thickened ligamentum flavum and facet arthropathy. Flattening of the ventral thecal sac. Lateral recess narrowing on bothsides. Pfcl-ug-rxtuhzyf neural foraminal narrowing. L5-S1: Disc bulge with bilateral facet arthropathy. No significant spinal canal stenosis. Mild right and severe left neural foraminal narrowing.Mass effect on the exiting left L5 nerve root. VISUALIZED UPPER ABDOMEN: Right renal posterior cortex partially imaged1.4 cm T1 and T2 hyperintense lesion does not meet criteria for a simple cyst. Note made of nonspecific retroperitoneal lymph nodes. IMPRESSION: 1. Moderate lumbar disc degeneration with thickened ligamentum flavumand more advanced facet arthropathy as described. There is no high-gradespinal canal stenosis. 2. Varying degrees of bilateral neural foraminal stenosis ranging up to severe on the left at L5-S1 and additional findings as above. 3. The T12-L2 vertebral body T1 hypointense, stir hyperintense marrowsignal alteration is indeterminate without previous imaging for comparison and presumed to be degenerative in nature. Please correlate with laboratorydata if there is concern for an infectious process. If there is concern for metastases then recommend complete pre and postcontrast MRI. 4. Partially imaged right renal 1.4 cm lesion does not meet criteria for simple cyst. If this is a new finding for the patient then recommend contrast-enhanced renal protocol MRI. 5. Previous imaging studies are not available for comparison. THIS IS AN ELECTRONICALLY VERIFIED FINAL REPORT 11/12/2024 11:50 AM - Electronically signed by Volodymyr Pal D.O. AP: AP Report ID: [id number] Reading Location: [place] [address] Flor Bailey NP [facility] [place] MRI PROCEDURES Final Resul t * Diagnostic Mammogram Bilateral W Dean (02/08/2022 [...] Albumin Creatinine Ratio, Urine (06/03/2021 2:32 PM AGILE QA TESTER) Albumin Ur <12.0 mg/L [facility]YSON FELIX H ([facility]) Comment: Interpretive Data No reference range established. Current interpretive data was last revised 2018. Testing performed by: [facility], [address] [place] [address]., [id number] Creatinine Ur 119.6 mg/dL GRAYSON WOO ([facility]) Comment: Interpretive Data No reference range established. Current interpretive data was last revised 2018. Testing performed by: [facility], [address] [place] [address]., [id number] Albumin Creatinine Ratio, Ur <10 1 - 29 mg/g GRAYSON WOO ([facility]) Comment:Testing performed by : [address] [address] Urine 06/03/2021 2:32 PM AGILE QA TESTER 06/03/2021 8:46 PM AGILE QA TESTER Narrative G[facility]YSON WOO ([facility]) - 06/03/2021 9:29 PM AGILE QA TESTER Fasting- pt will be getting done 1-2 weeks before appt us Aleksey Meléndez MD LAB URINE ORDERABLES Final Res ult GRAYSON WOO ([facility]) 1 [facility] Department of Laboratories [place], [place] [address] * eGFR (06/03/2021 11:45 AM AGILE QA TESTER) eGFR 109 mL/min/1. 73 m2 GRAYSON ZAMUDIO) Comment: Interpretive Data Reference Interval Normal >/= [...] reviewed 2021. Blood 06/03/2021 11:4 5 AM AGILE QA TESTER 06/03/2021 1:00 PM AGILE QA TESTER us Aleksey Meléndez MD LAB BLOOD ORDERABLES Final Res ult [facility]ON RosarioEMMA) 1 [facility] Department [place] [address] * Hemoglobin A1c (06/03/2021 11:45 AM AGILE QA TESTER) Hgb A1C 5.5 4.0 - 5.6 % GRAYSON ZAMUDIO) Estimated Average Glucose 111 mg/dL GRAYSON ZAMUDIO) Comment: The ADA recommends reporting an estimated Average Glucose (eAG) with all Hemoglobin A1c results using the equation derived from a study of 507 normal and diabetic adults. Minority populations were underrepresented and children were not included. (Diabetes Care 31:1870-2696, 2008). The eAG is not equivalent to a fasting glucose. Blood 06/03/2021 11:4 5 AM AGILE QA TESTER 06/03/2021 1:00 PM AGILE QA TESTER Narrative GRAYSON ZAMUDIO) - 06/03/2021 1:58 PM AGILE QA TESTER Fasting- pt will be getting done 1-2 weeks before appt us Aleksey Meléndez MD LAB BLOOD ORDERABLES Final Res ult G[facility]YSON WOO ([facility]) 1 [facility] Department [place] [address] * (ABNORMAL) Lipid panel (06/03/2021 11:45 AM AGILE QA TESTER) Cholesterol 218(H) 30 - 199 mg/dL GRAYSON [...] revised on 2018. Chol/HDL ratio 7 SAPNA WOO ([facility]) Blood 06/03/2021 11:4 5 AM AGILE QA TESTER 06/03/2021 1:00 PM AGILE QA TESTER Narrative [facility]ON WOO ([facility]) - 06/03/2021 1:25 PM AGILE QA TESTER Fasting- pt will be getting done 1-2 weeks before appt us Aleksey Meléndez MD LAB BLOOD ORDERABLES Final Res ult G[facility]YSON WOO ([facility]) 1 [facility] Department [place] [address] * DIABETES EYE EXAM (06/27/2019) Historical Provider HEALTH MAINTENANCE Edited Result - Final * Hepatitis C Antibody Reflex Hepatitis C RNA Quantitative PCR (03/27/2017 2:34 PM AGILE QA TESTER) Hep C Ab Negative Negative GRAYSON CADE Blood specimen (specimen) 03/27/2017 2:34 PM AGILE QA TESTER 03/27/2017 2:34 PM AGILE QA TESTER Aleksey Meléndez MD LAB MICROBIOLOGY - GENERAL ORD ERABLES Final Result [facility] [address] Department [place] [address] * COLONOSCOPY (03/07/2016 12:00 AM CDT) Anatomical Region Laterality Modality Other Narrative 03/07/2016 12:00 AM CDT Ordered by an unspecified provider. Procedure Note Provider, MD Kevin - 03/07/2016 12:00 AM CDT PROCEDURE REPORT Patient: BELEM WHITT Service Date: 03/07/2016 Account: [id number] Room No: : 1965 Patient Type: [facility] Attend.: Eriberto Solorio M.D. Admit Date: 03/07/2016 [...] and we did a timeout. We used [employer]. The patient was placed in the left [...] 03/10/2016 03:51 PM CDT Eriberto Solorio M.D. /[facility] TD: 03/07/2016 10:10 CC: Aleksey Meléndez M.D. [...] Maintenance Insurance CIGNA CIGNA CIGNA Care Teams School Curriculum Developer Relationship Specialty Start Date End Date Juancarlos Mendez MD PCP - General 12/28/21
--- OUTSIDE RECORDS SUMMARY | 2025-01-04 13:10 | XMS_ITS | Encounter Summary ---
Author Organization [facility] Address [address] [place] [address] Phone Care Team Providers Care Traffic Circuit Engineer Name Role Phone Aleksey Meléndez MD Primary Care Provider [phone] Juancarlos Mendez MD Primary Care Provider [phone] Encounter Details Date Type Department Care Team (Late st Contact Info) Description 09/29/2017 Orders Only [facility] ProviderKevin MD [address] [place] [address] Social History Tobacco Use Types Packs/Day Years Used Date Smoking Tobacco: Heavy Smoker Smokeless Tobacco: Never Comments:Smoking History Pac ks/day: 1 Packs Alcohol Use Standard Drinks/Week Comments Yes 0 (1 standard drink = 0.6 oz pur e alcohol) Comments Unknown Sex and Gender Information Value Date Recorded Sex Assigned at Not on file Legal Sex Female 8:05 PM FINAL EXPENSE AGENT Gender Identity Not on file Sexual Orientation [...] AM CDT Ordered by an unspecified provider. us Historical Provider LAB BLOOD ORDERABLES Bridget l Result documented in this encounter Visit Diagnoses Not on filedocumented in this encounter Additional Health Concerns Infection Onset Date Last Indicated Resolved Time COVID: Suspected 12/01/2021 12/01/2021 12/01/2021 2:18 PM CDT documented as of this encounter Care Teams Traffic Circuit Engineer Relationship Specialty Start Date End Date Aleksey Meléndez MD PCP - General 08/12/16 12/27/21 Juancarlos Mendez MD PCP - General 12/28/21 documented as of this encounter
--- OUTSIDE RECORDS SUMMARY | 2025-01-04 13:10 | XMS_ITS | Encounter Summary ---
Author Organization [facility] Address [address] [place] [address] Phone Care Team Providers Care Furniture Sales Associate Name Role Phone Aleksey Meléndez MD Primary Care Provider [phone] Juancarlos Mendez MD Primary Care Provider [phone] Encounter Details Date Type Department Care Team (Late st Contact Info) Description 10/13/[address] [facility] ProviderKevin MD [address] [place] [address] Social History Tobacco Use Types Packs/Day Years Used Date Smoking Tobacco: Heavy Smoker Smokeless Tobacco: Never Comments:Smoking History Pac ks/day: 1 Packs Alcohol Use Standard Drinks/Week Comments Yes 0 (1 standard drink = 0.6 oz pur e alcohol) Comments Unknown Sex and Gender Information Value Date Recorded Sex Assigned at Not on file Legal Sex Female 8:05 PM GRAPHICS COORDINATOR Gender Identity Not on file Sexual Orientation [...] documented as of this encounter Care Teams Furniture Sales Associate Relationship Specialty Start Date End Date Aleksey Meléndez MD PCP - General 08/12/16 12/27/21 Juancarlos Mendez MD PCP - General 12/28/21 documented as of this encounter
--- OUTSIDE RECORDS SUMMARY | 2025-01-04 13:57 | XMS_ITS | Encounter Summary ---
Author Organization [facility] Address [address] [place] [address] Phone Care Team Providers Care Truck Safety Inspector Name Role Phone Aleksey Meléndez MD Primary Care Provider [phone] Juancarlos Mendez MD Primary Care Provider [phone] Encounter Details Date Type Department Care Team (Late st Contact Info) Description 10/13/2017 Orders Only [facility] ProviderKevin MD [address] [place] [id number] Social History Tobacco Use Types Packs/Day Years Used Date Smoking Tobacco: Heavy Smoker Smokeless Tobacco: Never Comments:Smoking History Pac ks/day: 1 Packs Alcohol Use Standard Drinks/Week Comments Yes 0 (1 standard drink = 0.6 oz pur e alcohol) Comments Unknown Sex and Gender Information Value Date Recorded Sex Assigned at Not on file Legal Sex Female 8:05 PM [employer] Gender Identity Not on file Sexual Orientation [...] documented as of this encounter Care Teams Truck Safety Inspector Relationship Specialty Start Date End Date Aleksey Meléndez MD PCP - General 08/12/16 12/27/21 Juancarlos Mendez MD PCP - General 12/28/21 documented as of this encounter
--- OUTSIDE RECORDS SUMMARY | 2025-01-04 13:57 | XMS_ITS | Encounter Summary ---
Author Organization [facility] Address [address] [place] [address] Phone Care Team Providers Care Client Experience Administrator Name Role Phone Aleksey Meléndez MD Primary Care Provider [phone] Juancarlos Mendez MD Primary Care Provider [phone] Encounter Details Date Type Department Care Team (Late st Contact Info) Description 09/29/2017 Orders Only [facility] ProviderKevin MD [address] [place] [id number] Social History Tobacco Use Types Packs/Day Years Used Date Smoking Tobacco: Heavy Smoker Smokeless Tobacco: Never Comments:Smoking History Pac ks/day: 1 Packs Alcohol Use Standard Drinks/Week Comments Yes 0 (1 standard drink = 0.6 oz pur e alcohol) Comments Unknown Sex and Gender Information Value Date Recorded Sex Assigned at Not on file Legal Sex Female 8:05 PM [employer] Gender Identity Not on file Sexual Orientation [...] documented as of this encounter Care Teams Client Experience Administrator Relationship Specialty Start Date End Date Aleksey Meléndez MD PCP - General 08/12/16 12/27/21 Juancarlos Mendez MD PCP - General 12/28/21 documented as of this encounter
--- NOTE | 2025-01-04 14:48 | ED_ITS ---
HPI - Extremity Injury (Lower) General Chief Complaint: Extremity Injury, Lower Stated Complaint: swollen L. ankle Time Seen by Provider: 01/04/25 13:44 History of Present Illness HPI Narrative: Patient is a 59-year-old female who presents ER with left ankle pain. Was standing up out of a folding chair when her left ankle twisted. Has trouble bearing weight. no numbness/weakness. No head injury. Related Data Home Medications ?Medication ?Instructions ?Recorded ?Confirmed ?Last Taken ?Type cholecalciferol (vitamin D3) 125 125 mcg PO DAILY 01/0310/30/24 Unknown History mcg (5,000 unit) capsule Allergies Allergy/AdvReac Type Severity Reaction Status Date / Time Opioids - Morphine Analogues Allergy Severe Itching Verified 01/04/25 13:09 Penicillins Allergy Hives Verified 01/04/25 13:09 Review of Systems Constitutional: Constitutional: Reports no additional constitutional complaints Musculoskeletal: Musculoskeletal: Reports no additional musculoskeletal complaints Neurologic: Reports system reviewed and no additional complaints, except as documented [facility] Past Medical History Medical History (Updated 01/04/25 @ 14:52 by Chinedu Simpson MD) Renal mass Hypertension Type 2 diabetes mellitus Family History Family History Mother Cancer Heart disease Depression Hypertension Sibling Alcohol abuse Diabetes mellitus Hypertension Depression Social History Social History Smoking packs per day: 1 Smoking cigarettes per day: 20.0 Smoking status: Current every day smoker Alcohol intake: never Substance use: never Substance use type: does not use Lack of Transportation: No Lack of Food: Never True Current Housing: I Have Housing Concerned About Future Housing: No Difficulty Paying Gas/Electric Bills: No Difficulty Paying for Meds: No Currently Unemployed: No Education: High School Diploma/GED Difficulty w/ Childcare or Family Care: No Living arrangements: with family Additional occupation/education comments: Housewife Gender identity (if verbalized by the patient): Female Sexual Orientation (if Verbalized by the Patient): Straight or Heterosexual Agree to blood products: Yes Exam Narrative: GENERAL: Well-appearing, well-nourished, and in no acute distress. HEAD: Normocephalic, atraumatic. ENT: Mucous membranes moist. HEART: Regular rate and rhythm. Normal peripheral pulses. EXTREMITIES: Normal range of motion. No edema. Tender palpation over left ATFL. No swelling. NEURO: Alert and oriented x3. PSYCH: Normal mood and affect. Course Course Emergency Course: Ankle sprain. Discussed conservative treatment. Discharge. Vital Signs Vital signs: Vital Signs Temperature 97.8 F 01/04/25 13:09 Pulse Rate 85 01/04/25 13:09 Respiratory Rate 16 01/04/25 13:09 Blood Pressure 124/87 01/04/25 13:09 Pulse Oximetry 99 01/04/25 13:09 Oxygen Delivery Room Air 01/04/25 13:09 Temperature 97.8 F 01/04/25 13:09 Pulse Rate 85 01/04/25 13:09 Respiratory Rate 16 01/04/25 13:09 Blood Pressure 124/87 01/04/25 13:09 Pulse Oximetry 99 01/04/25 13:09 Oxygen Delivery Room Air 01/04/25 13:09 MDM - Extremity Injury (Lower) Imaging Data Radiologist's impression: ITS Impressions Ankle X-Ray 01/04/25 13:52 IMPRESSION: 1: NO ACUTE BONE OR JOINT ABNORMALITY IDENTIFIED. Foot X-Ray 01/04/25 13:52 IMPRESSION: 1: NO ACUTE BONE OR JOINT ABNORMALITY IDENTIFIED. Discharge Plan Discharge Clinical Impression: Ankle sprain Patient Disposition: Home Condition: Stable Instructions: Ankle Sprain (ED), P.R.I.C.E. Treatment (ED) Patient Language: Malaysian Prescriptions: No Action cholecalciferol (vitamin D3) 125 mcg (5,000 unit) capsule 125 mcg PO DAILY mupirocin 2 % ointment 1 applic topical TID PRN (Reason: rash or itching) Qty: 15 0RF losartan 50 mg tablet See Rx Instructions .ROUTE .COMPLEX Qty: 90 3RF Dose Instruction: Take 1 tablet by mouth once daily Rx Instructions: Take 1 tablet by mouth once daily rosuvastatin [Crestor] 5 mg tablet 5 mg PO QHS Qty: 90 3RF metoprolol tartrate 50 mg tablet See Rx Instructions .ROUTE .COMPLEX Qty: 180 3RF Dose Instruction: Take 1 tablet by mouth twice daily Rx Instructions: Take 1 tablet by mouth twice daily cyclobenzaprine 5 mg tablet 5 mg PO TID PRN (Reason: muscle spasm) Qty: 30 0RF tramadol 50 mg tablet 50 mg PO Q6H PRN (Reason: pain) Qty: 30 0RF Ozempic 2 mg/dose (8 mg/3 mL) pen injector 2 mg subcut WEEKLY Qty: 3 6RF celecoxib 100 mg capsule See Rx Instructions .ROUTE .COMPLEX Qty: 180 3RF Dose Instruction: Take 1 capsule by mouth twice daily Rx Instructions: Take 1 capsule by mouth twice daily omeprazole 40 mg capsule,delayed release(DR/EC) See Rx Instructions .ROUTE .COMPLEX Qty: 90 3RF Dose Instruction: Take 1 capsule by mouth once daily Rx Instructions: Take 1 capsule by mouth once daily Follow-up/Referrals: Flor Bailey APRN [Primary Care Provider, Family Practice] - 1 Week
== END 2025-01-04 15:20 | disposition home or self-care (01) ==
PROVIDERS: Emergency Provider Emergency Medicine; PCP Nurse Practitioner Adult Health
DX: S83.92XA Sprain of unspecified site of left knee, initial encounter (principal); I10 Essential (primary) hypertension; E11.9 Type 2 diabetes mellitus without complications; F17.210 Nicotine dependence, cigarettes, uncomplicated; Z79.899 Other long term (current) drug therapy; Z79.85 Long-term (current) use of injectable non-insulin antidiabetic drugs; X50.9XXA Other and unspecified overexertion or strenuous movements or postures, initial encounter
CPT/HCPCS: 73610; 73630; 99283